=== PATIENT | male | born 1965 | race Caucasian/White ===

== ENCOUNTER 2020-07-13 11:04 | Emergency (ER) | payer OTHER, SELFPAY ==
--- NOTE | ~2020-07-13 | XR_ITS ---
EXAMINATION: XR RIBS, RIGHT CLINICAL INFORMATION: Status post fall COMPARISON: None TECHNIQUE: 3 views of the right ribs were obtained. FINDINGS: Multiple views of right ribs reveal no visible fracture or bony abnormality. The soft tissues are normal. There is no visible pneumothorax. XR/XR ribs RT 2V IMPRESSION: No visible rib fracture or bony abnormality.
[2020-07-13 11:23] VITALS: BP 125/73; PULSE 81; RESP 16; TEMP 36.8; O2SAT 99; BMI 26.9
--- NOTE | 2020-07-13 12:12 | ED.GENADULT ---
HPI - General Adult General Chief complaint: Fall Stated complaint: RIB INJURY Time Seen by Provider: 07/13/20 12:12 Source: patient and family Limitations: no limitations History of Present Illness HPI narrative: Patient's family states that he was in the basement on Friday when he tripped falling onto a cardboard box on the right side of his ribs. Pain has increased since pain is worse with deep inspiration or palpation. Pain 6/10. No nausea vomiting shortness of breath at this time. Patient denies tobacco history. Symptoms are [id number]. No prior history of rib injury. Related Data Previous Rx's Medication Instructions Recorded ibuprofen 600 mg PO Q8H PRN #30 tab 07/13/20 Allergies Allergy/AdvReac Type Severity Reaction Status Date / Time No Known Allergies Allergy Mild N/A Unverified 11/25/19 16:34 Review of Systems Review of Systems: Constitutional : No fever chills ise ENT/Mouth : Denies sore throat. Cardiovascular : No Chest Pain, No SOB, No Dyspnea on Exertion, No Orthopnea, No Edema, No Palpitations Respiratory : No Cough, No Sputum, No Wheezing, No Smoke Exposure, No Dyspnea Gastrointestinal : No Nausea, No Vomiting, No Diarrhe Musculoskeletal : No joint pain, No Myalgias, No Joint SwellingSkin : No Skin Lesions, No rash Neuro : No Weakness, No Numbness, No Paresthesias, No Loss of Consciousness, No Dizziness, No Headache Psych : No Anxiety/Panic, No Depression, No SI/HI/AH/VH, No Social Issues, Heme/Lymph: No Bruising, No Bleeding,No Lymphadenopathy Endocrine : No Polyuria, No Polydipsia, No Temperature Intolerance [facility] Past Medical History Attestation statement: The following information was validated with the patient. [facility] Narrative: Denies past medical history Medical History No known health problems Social History Social History Advance Directives: No Advance Directives Information Provided: No Physical Exam Vital Signs: Vital Signs: Last Vital Signs Temp 98.2 F 07/13/20 11:23 Pulse 81 07/13/20 11:23 Resp 16 07/13/20 11:23 BP 125/73 07/13/20 11:23 Pulse Ox 99 07/13/20 11:23 Body Mass Index 26.9 vital signs have been reviewed as normal and appeared to be correct. Blood pressure normal. Heart rate normal. Respiration rate normal. Temperature normal. Oxygen saturation normal. Appearance: Alert. Oriented X3. No acute distress. Head: Normal external exam. Normocephalic. Atraumatic. No Frank signs noted. No raccoon eyes noted Eyes: PERRLA. EOMI. Neck: Soft full range of motion, no JVD CVS: Heart regular rate and rhythm no murmurs and rubs Respiratory: Breath sounds are clear to auscultation bilaterally. No accessory muscle use noted. Right lateral ribs positive tenderness no crepitus palpated Abdomen: Soft nontender no rebound or guarding positive bowel sounds Back: No CVA tenderness. Full range of motion noted. Skin: Skin warm and dry. Normal skin color. Normal skin turgor. No rashes/lesions/lacerations noted. Extremities: No lower extremity edema. Extremities exhibit normal range of motion. Extremities nontender. Neuro: Oriented X 3. No motor deficit. No sensory deficit. Reflexes normal. Course Course Course Narrative: Right rib x-ray is pending. Patient likely has a right rib into. Medical Decision Making Imaging Data rib: Radiologist's impression: [address] [id number] ReportSigned Patient: Dre BrisenoMR#: [id number]: [id number]:[id number]/Sex: 54 / MADM Date: 07/13/20Loc: HO.EDAttending Dr: Ordering Physician: Lucila Montoya DO Date of Service: 07/13/20 Procedure(s): XR ribs RT 2V Accession Number(s): [id number] cc: Lucila Montoya DO~ EXAMINATION: XR RIBS, RIGHT CLINICAL INFORMATION: Status post fall COMPARISON: None TECHNIQUE: 3 views of the right ribs were obtained. FINDINGS: Multiple views of right ribs reveal no visible fracture or bony abnormality. The soft tissues are normal. There is no visible pneumothorax. XR/XR ribs RT 2V IMPRESSION: No visible rib fracture or bony abnormality. Dictated By:ABHINAV MENDEZ MDSigned By:<Electronically signed by ABHINAV MENDEZ MD in OV>07/13/20 1218 DD/ 1144TD/TT: Cdl Bulk Driver: ULISES Discharge Plan Discharge Clinical Impression: Contusion of rib on right side Patient Disposition: Home, Self-Care Instructions: Rib Contusion (ED) Additional Instructions: Deep inspirations every hour times 10 to help prevent pneumonia when you have a rib injury Motrin as directed Prescriptions: New ibuprofen 600 mg tablet 600 mg PO Q8H PRN (Reason: pain) Qty: 30 RF: 0 Print Language: Citizen Of [place]
== END 2020-07-13 13:04 | disposition home or self-care (01) ==
PROVIDERS: Emergency Provider Emergency Medicine
DX: S20.211A Contusion of right front wall of thorax, initial encounter (principal); W01.0XXA Fall on same level from slipping, tripping and stumbling without subsequent striking against object, initial encounter; Y93.89 Activity, other specified; Y92.018 Other place in single-family (private) house as the place of occurrence of the external cause; Y99.9 Unspecified external cause status
CPT/HCPCS: 71100; 99283

== ENCOUNTER 2020-11-19 12:51 | Emergency (ER) | payer OTHER, SELFPAY ==
--- NOTE | ~2020-11-19 | XR_ITS ---
EXAMINATION: XR HAND, LEFT CLINICAL INFORMATION: Laceration with a saw COMPARISON: None TECHNIQUE: PA, lateral, and oblique views of the left hand. FINDINGS: There is a soft tissue laceration through the volar aspect of the distal second digit extending to the proximal segment mid phalanx second digit. No additional bony abnormality seen. XR/XR hand LT 2V IMPRESSION: There is a soft tissue laceration extending from the tip of the volar aspect of second digit extending to the base of mid phalanx second digit resulting in angled avulsion fracture. There is moderate soft tissue swelling. No radiopaque foreign body seen.
[2020-11-19 12:57] VITALS: BP 157/98; PULSE 92; RESP 16; TEMP 36.8; O2SAT 98; BMI 25.0
--- NOTE | 2020-11-19 13:17 | PC.NURSE ---
large lac left index finger from pad on tip of finger down towards last knuckle, open, bleeding, and ragged. pad of thumb also is lacerated but still connected. has good sensation tips of all fingers and some ability to bend at knuckles. has been seen by niesha Mckinney and LATOYA Contreras.
[2020-11-19] MEDS: oxyCODONE HCl Immed Release 5 MG TABLET PO (13:24)
[2020-11-19] MEDS: Morphine Sulfate 4 MG/ML CARTRIDGE IM (13:24)
[2020-11-19] MEDS: Ondansetron ODT 4 MG TAB.RAPDIS TRANSLINGU (13:24)
[2020-11-19] MEDS: Lidocaine HCl 1 % MPF 5 ML VIAL SUBCUT ×2 (13:24→15:45)
[2020-11-19 13:29] VITALS: BP 145/90; PULSE 82; RESP 18; O2SAT 97
--- NOTE | 2020-11-19 13:30 | PC.NURSE ---
pt states he didn't pass out after laceration but has felt dizzy since.
[2020-11-19 14:00] VITALS: BP 131/84; PULSE 73; RESP 18; O2SAT 98
--- NOTE | 2020-11-19 15:24 | ED_ITS ---
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 He he reports he has some numbness sensation to the index/thumb and ulnar aspect of the left hand. He denies any thoughts of foreign bodies. He denies any bony tenderness. He reports he is up-to-date on his tetanus. This is not a work related injury. He denies any other injuries complaints or concerns at this time. Onset (ago): minute(s) (Prior to arrival) Extremity Location: left: hand (Index and thumb) Place: home Patient tetanus UTD: Yes Context: accidental Associated symptoms: pain and loss of feeling/numbness Treatments prior to arrival: tourniquet Related Data Previous Rx's Medication Instructions Recorded ibuprofen 600 mg tablet 600 mg PO Q8H PRN #30 tab 07/13/20 acetaminophen 500 mg tablet 1,000 mg PO QID PRN #14 tab 11/19/20 (Tylenol Extra Strength) cephalexin 500 mg capsule 500 mg PO Q6H 14 Days #56 cap 11/19/20 ibuprofen 800 mg tablet 800 mg PO Q8H PRN #14 tab 11/19/20 oxycodone 5 mg tablet 5 mg PO Q6H PRN #20 tab 11/19/20 Allergies Allergy/AdvReac Type Severity Reaction Status Date / Time No Known Allergies Allergy Mild N/A Verified 11/19/20 12:57 Review of Systems Review of Systems: Constitutional : No Fever, No Chills, Cardiovascular : No Chest Pain, No SOB Respiratory : No Dyspnea Gastrointestinal : No abdominal pain Musculoskeletal : No Joint Swelling Skin : positive skin laceration, No Foreign bodies, No rash, No surrounding erythema Neuro : Positive numbness, No Weakness Psych : No SI/HI/thoughts of self injury Yes all other systems are reviewed and are negative [facility] Past Medical History Attestation statement: The following information was validated with the patient. Medical History No known health problems Social History Social History Alcohol intake: never Patient Tobacco Use Status: Former Tobacco user Smoked in Last 30 Days: No Use of substances other than those prescribed or required for medical reasons: No Advance Directives: No Physical Exam Vital Signs: Vital Signs: Last Vital Signs Temp 98.2 F 11/19/20 12:57 Pulse 73 11/19/20 14:00 Resp 18 11/19/20 14:00 BP 131/84 11/19/20 14:00 Pulse Ox 98 11/19/20 14:00 Body Mass Index 25.0 vital signs have been reviewed as normal and appeared to be correct. Blood pressure hypertensive 157/98. Heart rate normal. Respiration rate normal. Temperature normal. Oxygen saturation normal. Appearance: Alert. Oriented X3. No acute distress. Head: Normal external exam. Normocephalic. Atraumatic. Eyes: PERRLA. EOMI. Conjunctiva and sclera normal. Eyelids normal. ENT: Pharynx normal. Uvula midline. Moist mucous membranes. Neck: Normal inspection. Neck supple. FROM. No adenopathy. No meningeal signs. CVS: Normal heart rate and rhythm. Pulses normal throughout. Respiratory: No respiratory distress. Painless inspiration. Abdomen: Soft and nontender. Bowel sounds normal in all 4 quadrants. No distent ion noted. No organomegaly noted. No visible injury noted. Back: Full range of motion noted. No rashes/lesion/induration/fluctuance or signs of infection noted. Skin: Skin warm and dry. Normal skin color. Normal skin turgor. No rashes/lesions/lacerations noted. Extremities: To left hand index finger patient has dorsal aspect patient has an extensive 6 cm or longer intermediate laceration involving the entire index finger. Both Dr. Mckinney and Jigna examined the tendons and ligaments and on our exam there is no ligamentous or tendon injury noted. Patient does report numbness although he has tenderness to palpation throughout the entire finger no obvious numbness noted on our exam. No obvious deformities or foreign bodies noted. He has full range of motion of the left hand index finger. To the left thumb distal aspect at the pad patient is noted to have an extensive intermediate flap laceration with irregular borders and missing tissue. No ligamentous/tendon injury. Patient does have tenderness palpation to the entire finger. He has full range of motion of the left hand all fingers including the thumb and the index. No foreign bodies noted. No arterial or venous injury no tawana on our exam. No nail involvement. See pictures below. Otherwise all other Extremities exhibit normal range of motion and nontender. Neuro: Oriented X 3. No motor deficit. No sensory deficit. Reflexes normal. Normal steady gait. No focal neuro deficits noted. Vascular: + radial pulses. Normal cap refill. No cyanosis noted to upper extremity nails. 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 Reports he is up-to-date on tetanus. Reports associated numbness although both Dr. Mckinney and I examined the patient and he does not have any sensory deficits he does not have any obvious ligamentous or tendon injury. He does not have any bony tenderness. There are no foreign bodies noted. He has full range of motion with pain. He has 2 extensive lacerations. X-ray obtained and reveals soft tissue swelling otherwise no other acute processes such as fractures or foreign bodies. Patient is now status post laceration repair I placed 14 sutures to the left thumb although patient had multiple irregular jagged edges therefore he may need a skin graft. I placed Xeroform with a clean dressing. I also sutured left hand index finger which required 23 sutures. Patient tolerated procedure well. No complications there. Place Xeroform with a clean dressing as well. Started the patient on Keflex. Will DC home with antibiotics and symptomatic treatment and referral to Dr. Moncada's the hand surgeon I instructed him to call tomorrow to make a follow-up appointment within this week and if he cannot make a follow-up appointment within this week he needs to follow up within 3-5 days back to the emergency department for re- evaluation of his sutures and I would recommend his sutures to stay in place for at least 14 days. Patient and son and understand and agree with this plan. [facility] - Wound/Laceration Medical Records Attestation: I reviewed the patient's medical records. Imaging Data X-ray of left hand: Attestation: I personally reviewed and interpreted this imaging study as follows: Radiologist's impression: CLINICAL INFORMATION: Laceration with a saw? COMPARISON: None? TECHNIQUE: PA, lateral, and oblique views of the left hand. FINDINGS: There is a soft tissue laceration through the volar aspect of the distal second digit extending to the proximal segment mid phalanx second digit. No additional bony abnormality seen. XR/XR hand LT 2V IMPRESSION: There is a soft tissue laceration extending from the tip of the volar aspect of second digit extending to the base of mid phalanx second digit resulting in angled avulsion fracture. There is moderate soft tissue swelling. No radiopaque foreign body seen. Procedures Laceration Laceration 1: Site: hand (Index finger dorsal aspect) Side (If applicable): left Size (cm): 6 Description: linear and irregular Depth: involves muscle layer Local Anesthetic: lidocaine 1% Amount of anesthesia used (mL): 5 Pre-repair: wound explored, irrigated extensively, deep structures intact and wound margins revised Skin layer closed with: nylon Size (cm): 4-0 Number of sutures: 23 Technique: simple, interrupted Laceration 2: Site: hand (Thumb palmar aspect) Side (If applicable): left Size (cm): 6 Description: flap and irregular Depth: involves muscle layer Local Anesthetic: lidocaine 1% Amount of anesthesia used (mL): 5 Pre-repair: wound explored, irrigated extensively, deep structures intact and wound margins revised Skin layer closed with: nylon Size (cm): 4-0 Number of sutures: 14 Technique: simple, interrupted Critical Care Time Critical Care Time Critical Care Time: Yes Total Critical Care Time: 60 Attestation: I personally attest to this time spent taking care of the patient Discharge Plan Discharge Clinical Impression: Laceration Patient Disposition: Home, Self-Care Instructions: Finger Laceration (ED) Prescriptions: New ibuprofen 800 mg tablet 800 mg PO Q8H PRN (Reason: pain) Qty: 14 RF: 0 acetaminophen [Tylenol Extra Strength] 500 mg tablet 1,000 mg PO QID PRN (Reason: fever or pain) Qty: 14 RF: 0 cephalexin 500 mg capsule 500 mg PO Q6H 14 Days Qty: 56 RF: 0 oxycodone 5 mg tablet 5 mg PO Q6H PRN (Reason: pain) Qty: 20 RF: 0 No Action ibuprofen 600 mg tablet 600 mg PO Q8H PRN (Reason: pain) Qty: 30 RF: 0 Referrals: [facility] [Primary Care Provider] - 2 days Deja Walker MD [Physician] - 11/20/20 Interventions: ED Discharge Assessment Last Done: 11/19/20 15:52 Discharge Date/Time: 11/19/20 15:52 Print Language: Peruvian
[2020-11-19] MEDS: cephALEXin 500 MG CAPSULE PO (15:45)
== END 2020-11-19 15:52 | disposition home or self-care (01) ==
PROVIDERS: Emergency Provider Emergency Medicine
DX: S61.412A Laceration without foreign body of left hand, initial encounter (principal); M79.642 Pain in left hand; W29.3XXA Contact with powered garden and outdoor hand tools and machinery, initial encounter; Y93.9 Activity, unspecified; Y92.9 Unspecified place or not applicable; Y99.9 Unspecified external cause status; Z79.899 Other long term (current) drug therapy; Z87.891 Personal history of nicotine dependence
CPT/HCPCS: 12002; 12004; 12042; 73120; 96372; 99284; 99291; J2270

== ENCOUNTER → 2020-11-20 13:53 | Outpatient (BNVA) | payer OTHER, SELFPAY | PROVIDERS: Visit Provider Orthopaedic Surgery | DX: S56.111A Strain of flexor muscle, fascia and tendon of right index finger at forearm level, initial encounter (principal); S62.621B Displaced fracture of middle phalanx of left index finger, initial encounter for open fracture; S62.611B Displaced fracture of proximal phalanx of left index finger, initial encounter for open fracture | CPT/HCPCS: 99202 ==

== ENCOUNTER 2020-11-22 16:00 | Emergency (ER) | payer OTHER, SELFPAY ==
--- NOTE | ~2020-11-22 | XR_ITS ---
EXAMINATION: XR HAND, LEFT CLINICAL INFORMATION: Laceration. Fever. Concern for infection. COMPARISON: Left hand November 19, 2020 TECHNIQUE: PA, lateral, and oblique views of the left hand. FINDINGS: There is a bandage over the index finger which obscures soft tissue and bone detail. There is redemonstration of the avulsed fracture of the middle phalanges of the index finger involving the proximal shaft and metaphysis of the radial side of the bone. There is continued collections of gas in the adjacent soft tissues. Persistence of gas since the prior study of November 19, 2020 in the soft tissues raises question of a gas-forming organism in the soft tissues. There is no bone destruction or periosteal reaction to suggest osteomyelitis radiographically. MRI without and with contrast however would be more sensitive for further assessment. There is also soft tissue laceration of the volar pad of the thumb with an overlying bandage. This is similar to the prior exam as well. No bone abnormality of the thumb. XR/XR hand LT min 3V IMPRESSION: Redemonstration of the fracture of the middle phalanges of the index finger. Continued gas in the soft tissues of the index finger adjacent to the fracture. No radiographic evidence of osteomyelitis. MRI without and with contrast however would be more sensitive for assessment of osteomyelitis.
[2020-11-22 16:41] VITALS: BP 142/82; PULSE 98; RESP 18; TEMP 37.1; O2SAT 98; BMI 27.3
[2020-11-22 18:17] VITALS: BP 140/84; PULSE 107; RESP 16; TEMP 36.8; O2SAT 97
--- NOTE | 2020-11-22 18:25 | ED.GENADULT ---
HPI - General Adult General Chief complaint: General Medical Stated complaint: Fever Time Seen by Provider: 11/22/20 16:21 Source: patient and family Mode of arrival: ambulatory Limitations: no limitations History of Present Illness HPI narrative: 55 y/o right hand dominant male with recent complex lacerations of his left index finger and thumb with open fracture of the left index finger who presents to the ER with 2 days of fevers at home. He was initially seen here on 11/19 on the date of his injury. He had multiple sutures placed to close his complex wounds, was discharged on 10 days of PO keflex. He followed up with Dr. Walker the next day. He has been compliant with his antibiotics. Yesterday he started having fevers as high as 101. He has pain in his hand that has been stable, improved with oxycodone. Denies discharge or redness of his fingers or hand. MD complaint: fever Onset (ago): day(s) (2) Location: left and upper extremity Radiation: non-radiation Severity: moderate Severity scale (1-10): 7 Quality: aching Pain Consistency: intermittent Relieving factors: cold therapy, immobilization and medication Exacerbating factors: movement Associated symptoms: fever/chills Treatments prior to arrival: none Related Data Previous Rx's Medication Instructions Recorded ibuprofen 600 mg tablet 600 mg PO Q8H PRN #30 tab 07/13/20 acetaminophen 500 mg tablet 1,000 mg PO QID PRN #14 tab 11/19/20 (Tylenol Extra Strength) cephalexin 500 mg capsule 500 mg PO Q6H 14 Days #56 cap 11/19/20 ibuprofen 800 mg tablet 800 mg PO Q8H PRN #14 tab 11/19/20 oxycodone 5 mg tablet 5 mg PO Q6H PRN #20 tab 11/19/20 ibuprofen 600 mg tablet 600 mg PO Q8H PRN #14 tab 11/22/20 oxycodone-acetaminophen 5 mg-325 1 tab PO Q6H PRN #7 tab 11/22/20 mg tablet (Percocet) Allergies Allergy/AdvReac Type Severity Reaction Status Date / Time No Known Allergies Allergy Mild N/A Verified 11/22/20 16:40 Review of Systems Review of Systems: Constitutional: + Fever, No Chills ENT/Mouth: No sore throat, No Rhinorrhea Cardiovascular: No Chest Pain, No SOB Respiratory: No Cough, No Sputum, No Wheezing, No dyspnea Gastrointestinal: No Nausea, No Vomiting, No Diarrhea, No abdominal Pain Genitourinary: No Dysuria Musculoskeletal: + joint pain, No Myalgias Skin: No Skin Lesions, No rash Neuro: No Weakness, No Numbness, No Dizziness, No Headache Heme/Lymph: No Bruising, No Lymphadenopathy PMFSH Past Medical History Attestation statement: The following information was validated with the patient. 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 Oriented X3. No acute distress. HEENT: normal inspection CVS: Normal heart rate and rhythm. Pulses normal. Respiratory: No respiratory distress. Skin: Skin warm and dry. Normal skin color. Normal skin turgor. No rashes. Extremities: left hand with mild swelling of the dorsal side, no erythema, mild warmth. multiple sutures in place along complex lacerations of the left index and thumb with mild swelling, no drainage, no erythema or warmth. limited ROM due to pain. NV intact distally. Neuro: Oriented X 3. No motor deficit. No sensory deficit. Course Course Course Narrative: 55 y/o male presenting for evaluation of fever in the setting of complex finger lacerations on 11/19. He is on PO abx and has been compliant. His exam does not reveal any concern for abscess, possible tenosynovitis but no red streaking up his arm. No fever here. He appears well. Will get labs, cultures, lactic acid and send photos to Dr. Walker who saw him 2 days ago. Reevaluation(s) Reevaluation #1: Dr. Walker feels the wounds like similar to how they looked 2 days ago. His lab workup is unremarkable. His COVID test is positive. He was counseled on diagnosis and management. He is stable for discharge home with supportive care and follow up with Dr. Walker once his quarantine is over. Patient agrees with plan and wound care at home was discussed. Medical Decision Making Lab Data Result diagrams: 11/22/20 18:47 11/22/20 18:47 Labs: Lab Results 11/22/20 11/22/20 11/22/20 Range/Units 18:47 18:47 18:47 WBC 6.8 (4.8-10.8) X10*3/uL RBC 5.35 (4.60-5.80) X10*6/uL Hgb 15.1 (14.0-18.0) g/dl Hct 45.2 (42-52) % MCV 84.5 (80-98) fL MCH 28.2 (27.0-33.0) pg MCHC 33.4 (31.0-36.0) g/dl RDW 13.2 (11.0-16.0) % Plt Count 218 (160-400) X10*3/uL MPV 10.0 (9.4-12.4) fL Immature Gran % (Auto) 0.3 (0.0-0.4) % Neut % (Auto) 66.7 (45-73) % Lymph % (Auto) 19.1 L (20-40) % [place] % (Auto) 13.5 H (2-11) % Eos % (Auto) 0.1 (0-4) % Baso % (Auto) 0.3 (0-2) % Lymph # (Auto) 1.3 (1.2-4.9) X10*3/uL [place] # (Auto) 0.9 (0.1-1.2) X10*3/uL Eos # (Auto) 0.0 (0.0-0.4) X10*3/uL Baso # (Auto) 0.0 (0.0-0.2) X10*3/uL Abs Immat Gran (auto) 0.02 (0.00-0.03) X10*3/uL Absolute Neuts (auto) 4.5 (2.0-8.3) X10*3/uL Absolute Nucleated RBC 0.000 (0.0-0.012) X10*3/uL Nucleated RBC % (auto) 0.0 (0.0-0.2) /100WBC Sodium 135 (135-145) mmol/L Potassium 4.5 (3.3-5.1) mmol/L Chloride 99 (96-108) mmol/L Carbon Dioxide 28 (22-29) mmol/L Anion Gap 13 (12-20) BUN 11 (9-16) mg/dL Creatinine 1.12 (0.5-1.4) mg/dL Estim Creat Clear Calc 65.4 Estimated GFR > 60 Random Glucose 101 (60-115) mg/dL Lactic Acid 0.6 (0.5-2.0) mmol/L Calcium 9.7 (8.4-10.2) mg/dL COVID-19 (ISAK) (Negative) COVID-19 Clin Com 11/22/20 Range/Units 18:47 WBC (4.8-10.8) X10*3/uL RBC (4.60-5.80) X10*6/uL Hgb (14.0-18.0) g/dl Hct (42-52) % MCV (80-98) fL MCH (27.0-33.0) pg MCHC (31.0-36.0) g/dl RDW (11.0-16.0) % Plt Count (160-400) X10*3/uL MPV (9.4-12.4) fL Immature Gran % (Auto) (0.0-0.4) % Neut % (Auto) (45-73) % Lymph % (Auto) (20-40) % [place] % (Auto) (2-11) % Eos % (Auto) (0-4) % Baso % (Auto) (0-2) % Lymph # (Auto) (1.2-4.9) X10*3/uL [place] # (Auto) (0.1-1.2) X10*3/uL Eos # (Auto) (0.0-0.4) X10*3/uL Baso # (Auto) (0.0-0.2) X10*3/uL Abs Immat Gran (auto) (0.00-0.03) X10*3/uL Absolute Neuts (auto) (2.0-8.3) X10*3/uL Absolute Nucleated RBC (0.0-0.012) X10*3/uL Nucleated RBC % (auto) (0.0-0.2) /100WBC Sodium (135-145) mmol/L Potassium (3.3-5.1) mmol/L Chloride (96-108) mmol/L Carbon Dioxide (22-29) mmol/L Anion Gap (12-20) BUN (9-16) mg/dL Creatinine (0.5-1.4) mg/dL Estim Creat Clear Calc Estimated GFR Random Glucose (60-115) mg/dL Lactic Acid (0.5-2.0) mmol/L Calcium (8.4-10.2) mg/dL COVID-19 (ISAK) Positive A (Negative) COVID-19 Clin Com See Note Critical Care Time Critical Care Time Critical Care Time: No Discharge Plan Discharge Clinical Impression: COVID-19 Patient Disposition: Home, Self-Care Instructions: COVID-19 (Coronavirus Disease 2019) (ED) Additional Instructions: You were found to be COVID-19 POSITIVE today. Your oxygen levels were normal. Rest. Drink plenty of fluids. Do not go out in public for the next 10-14 days. Take over the counter cold/flu medications as needed for your symptoms. Take Tylenol and/or Motrin as needed for fevers and body aches. Follow up with your doctor this week. If you develop shortness of breath, develop difficulty breathing or any other concerning symptom come back to the ER for further evaluation. Continue taking your previously prescribed antibiotics. Follow up with Dr. Walker once your quarantine is over. Prescriptions: New oxycodone-acetaminophen [Percocet] 5-325 mg tablet 1 tab PO Q6H PRN (Reason: pain) Qty: 7 RF: 0 ibuprofen 600 mg tablet 600 mg PO Q8H PRN (Reason: pain) Qty: 14 RF: 0 No Action ibuprofen 600 mg tablet 600 mg PO Q8H PRN (Reason: pain) Qty: 30 RF: 0 ibuprofen 800 mg tablet 800 mg PO Q8H PRN (Reason: pain) Qty: 14 RF: 0 acetaminophen [Tylenol Extra Strength] 500 mg tablet 1,000 mg PO QID PRN (Reason: fever or pain) Qty: 14 RF: 0 cephalexin 500 mg capsule 500 mg PO Q6H 14 Days Qty: 56 RF: 0 oxycodone 5 mg tablet 5 mg PO Q6H PRN (Reason: pain) Qty: 20 RF: 0 Referrals: Deja Walker MD [Physician] - 10 days Stand Alone Forms: Work/School Release Interventions: ED Discharge Assessment Last Done: 11/22/20 19:36 Discharge Date/Time: 11/22/20 19:36 Print Language: Slovenian
[2020-11-22 18:49] LABS: MANUAL DIFF FLAG NO
[2020-11-22 18:54] LABS: Basophils Percent Auto 0.3 % (0-2); Eosinophils Percent Auto 0.1 % (0-4); Hematocrit 45.2 % (42-52); Hemoglobin 15.1 g/dl (14.0-18.0); Imm Gran Abs Auto 0.02 X10*3/uL (0.00-0.03); Imm Gran Pct Auto 0.3 % (0.0-0.4); Lymphocytes Absolute Auto 1.3 X10*3/uL (1.2-4.9); Lymphocytes Percent Auto 19.1 % (20-40); Mean Corpuscular HGB Conc 33.4 g/dl (31.0-36.0); Mean Corpuscular Hemoglobin 28.2 pg (27.0-33.0); Mean Corpuscular Volume 84.5 fL (80-98); Monocytes Absolute Auto 0.9 X10*3/uL (0.1-1.2); Monocytes Percent Auto 13.5 % (2-11); Neutrophils Absolute Auto 4.5 X10*3/uL (2.0-8.3); Neutrophils Percent Auto 66.7 % (45-73); Platelet Count 218 X10*3/uL (160-400); Red Blood Count 5.35 X10*6/uL (4.60-5.80); Red Cell Distribution Width 13.2 % (11.0-16.0); White Blood Count 6.8 X10*3/uL (4.8-10.8)
[2020-11-22 19:07] LABS: IDNOW Serial# 08D9AD1C
[2020-11-22 19:08] LABS: COVID-19 Test Positive (Negative); Lactic Acid 0.6 mmol/L (0.5-2.0)
[2020-11-22 19:11] LABS: Anion Gap 13 (12-20); Blood Urea Nitrogen 11 mg/dL (9-16); Calcium 9.7 mg/dL (8.4-10.2); Carbon Dioxide 28 mmol/L (22-29); Chloride 99 mmol/L (96-108); Creatinine Clr Calc Pharmacy 65.4; Estimated Glomerular Filt Rate > 60; Glucose Random 101 mg/dL (60-115); Potassium 4.5 mmol/L (3.3-5.1); Sodium 135 mmol/L (135-145)
[2020-11-22] MEDS: HYDROcodone Bit/Acetam 5/325 TABLET 1 TAB PO (19:18)
== END 2020-11-22 19:36 | disposition home or self-care (01) ==
PROVIDERS: Physician Assistant; Emergency Provider Emergency Medicine Emergency Medical Services
DX: U07.1 COVID-19 (principal); R50.9 Fever, unspecified; Z87.891 Personal history of nicotine dependence; Z79.899 Other long term (current) drug therapy
CPT/HCPCS: 36415; 73130; 80048; 83605; 85025; 87040; 87635; 99283

== ENCOUNTER 2020-12-04 07:54 | Emergency (ER) | payer OTHER, SELFPAY ==
--- NOTE | 2020-12-04 07:59 | ED_ITS ---
HPI - Skin/Abscess/Foreign Bdy General Chief complaint: Extremity Problem Stated complaint: wound check Time Seen by Provider: 12/04/20 07:59 Source: patient Mode of arrival: ambulatory Limitations: no limitations History of Present Illness HPI narrative: This is a 55-year-old gjopm-ghip-zswaoaao male who presents to the emergency department for a wound check. He had 14 sutures placed to his left thumb, and 23 sutures placed to his left index finger. He states he was supposed to follow-up with Dr. Walker, however he tested positive for COVID on 11/22/2020 so they were unable to see him in the office. He is here today to see if his sutures can come out, or if Dr. Moncada should examine his hand. He denies fevers, chills, SOB, CP. MD complaint: laceration Tetanus up to date: yes Location: L hand Related Data Previous Rx's Medication Instructions Recorded ibuprofen 600 mg tablet 600 mg PO Q8H PRN #30 tab 07/13/20 acetaminophen 500 mg tablet 1,000 mg PO QID PRN #14 tab 11/19/20 (Tylenol Extra Strength) ibuprofen 800 mg tablet 800 mg PO Q8H PRN #14 tab 11/19/20 oxycodone 5 mg tablet 5 mg PO Q6H PRN #20 tab 11/19/20 ibuprofen 600 mg tablet 600 mg PO Q8H PRN #14 tab 11/22/20 oxycodone-acetaminophen 5 mg-325 1 tab PO Q6H PRN #7 tab 11/22/20 mg tablet (Percocet) cephalexin 500 mg capsule 500 mg PO QID 7 Days #28 cap 12/04/20 Allergies Allergy/AdvReac Type Severity Reaction Status Date / Time No Known Allergies Allergy Mild N/A Verified 11/22/20 16:40 Review of Systems Review of Systems: Appearance: Alert. Oriented X3. No acute distress. ENT: Pharynx normal. Neck: Normal inspection. Neck supple. CVS: Normal heart rate and rhythm. Pulses normal. Respiratory: No respiratory distress. Breath sounds normal. Abdomen: Soft and nontender. Skin: Skin warm and dry. Normal skin color. Normal skin turgor. Extremities: No lower extremity edema. + Sutures to left thumb and index finger Neuro: Oriented X 3. No motor deficit. No sensory deficit. 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 Oriented X3. No acute distress. ENT: Pharynx normal. Neck: Normal inspection. Neck supple. CVS: Normal heart rate and rhythm. Pulses normal. Respiratory: No respiratory distress. Breath sounds normal. Abdomen: Soft and nontender. Skin: Skin warm and dry. Normal skin color. Normal skin turgor. Extremities: No lower extremity edema. + sutures to left thumb and index finger, C/D/I. Thickening of skin surrounding sutures along with darkening of the skin ? viability of the skin overlying the thumb. Neuro: Oriented X 3. No motor deficit. No sensory deficit. Course Course Course Narrative: TT has been sent to Dr. Walker. Will not remove stitches until instructed to do so Reevaluation(s) Reevaluation #1: Dr. Moncada recommended removing all the stitches, and unroofing the wound to ensure that there is no infection. She also requested the patient be swabbed for COVID, and she would like him to follow-up sometime this week. All stitches were removed, 14 to the thumb, 23 to the left index finger. Edges of the wound were lifted, and there is no purulence. However, there is exquisite tenderness, especially when removing stitches to the left thumb. Concerning for infection. Plan is to discharge the patient home, with prompt follow-up with Dr. Walker office. He will also be started on antibiotics Keflex 500mg QID X7 days. Dr. Walker will try and get this patient in the office for follow up this week despite his + COVID test MDM - Skin/Abscess/Foreign Bdy MDM Narrative Medical decision making narrative: 55-year-old hicbv-ymyd-lnjiuwgy male presents to the emergency department for a wound check. He had a complex laceration on 11/19/2020 that was closed with 14 sutures to the left thumb, and 23 sutures to his left index finger. He states he was unable to follow-up with the hand surgeon, because he tested positive for COVID on 11/22/2020. He was told to come into the emergency department for follow-up, he also states that Dr. Moncada wanted us to contact her prior to removal of the stitches, to see whether not she needed to see him. Lab Data Labs: Lab Results 12/04/20 Range/Units 08:56 COVID-19 (ISAK) Positive A (Negative) COVID-19 Clin Com See Note Discharge Plan Discharge Clinical Impression: Laceration of thumb, left, complicated, Laceration of left index finger, Encounter for removal of sutures Patient Disposition: Home, Self-Care Instructions: Laceration (ED), Finger Laceration (ED) Additional Instructions: Please follow-up with Dr. Walker. Antibiotics have been sent to your pharmacy, it is important that you take them to their entirety, do not skip any doses Return to the emergency department with new or worsening symptoms Lisa un seguimiento con el Dr. Walker. Se bustos enviado antibi?ticos a tu farmacia, es importante que los lleves en nicole totalidad, no te saltes ninguna dosis Regrese al departamento de emergencias con s?ntomas nuevos o que empeoran Prescriptions: New cephalexin 500 mg capsule 500 mg PO QID 7 Days Qty: 28 RF: 0 Discontinued cephalexin 500 mg capsule 500 mg PO Q6H 14 Days Qty: 56 RF: 0 No Action oxycodone-acetaminophen [Percocet] 5-325 mg tablet 1 tab PO Q6H PRN (Reason: pain) Qty: 7 RF: 0 ibuprofen 600 mg tablet 600 mg PO Q8H PRN (Reason: pain) Qty: 14 RF: 0 ibuprofen 600 mg tablet 600 mg PO Q8H PRN (Reason: pain) Qty: 30 RF: 0 ibuprofen 800 mg tablet 800 mg PO Q8H PRN (Reason: pain) Qty: 14 RF: 0 acetaminophen [Tylenol Extra Strength] 500 mg tablet 1,000 mg PO QID PRN (Reason: fever or pain) Qty: 14 RF: 0 oxycodone 5 mg tablet 5 mg PO Q6H PRN (Reason: pain) Qty: 20 RF: 0 Referrals: Vernell Odonnell MD [Primary Care Provider] - 2 days Deaj Walker MD [Physician] - 2 days Stand Alone Forms: Work/School Release Print Language: Singaporean
[2020-12-04 08:06] VITALS: BP 140/75; PULSE 90; RESP 18; TEMP 36.6; O2SAT 98; BMI 25.7
[2020-12-04 08:12] VITALS: BP 140/72; PULSE 90; O2SAT 98
--- NOTE | 2020-12-04 08:58 | PC.NURSE ---
provider and pa at bedside to remove sutures, covid swab sent
[2020-12-04 09:18] LABS: COVID-19 Test Positive (Negative)
== END 2020-12-04 10:18 | disposition home or self-care (01) ==
PROVIDERS: Emergency Provider Emergency Medicine; PCP Internal Medicine
DX: U07.1 COVID-19 (principal); Z48.02 Encounter for removal of sutures; Z87.891 Personal history of nicotine dependence; Z79.899 Other long term (current) drug therapy
CPT/HCPCS: 36415; 87635; 99283; 99284

== ENCOUNTER → 2020-12-12 11:55 | Outpatient (BNVA) | payer OTHER, SELFPAY | PROVIDERS: PCP Internal Medicine; Visit Provider Orthopaedic Surgery | DX: S62.621D Displaced fracture of middle phalanx of left index finger, subsequent encounter for fracture with routine healing (principal); S62.611D Displaced fracture of proximal phalanx of left index finger, subsequent encounter for fracture with routine healing; S61.012D Laceration without foreign body of left thumb without damage to nail, subsequent encounter; S61.211D Laceration without foreign body of left index finger without damage to nail, subsequent encounter | CPT/HCPCS: 99212 ==

== ENCOUNTER 2020-12-26 07:59 | Outpatient (REF) | payer OTHER, SELFPAY ==
--- NOTE | ~2020-12-26 | XR_ITS ---
EXAMINATION: XR HAND, LEFT CLINICAL INFORMATION: Fracture COMPARISON: Previous x-ray November 2020 TECHNIQUE: PA, lateral, and oblique views of the left hand. FINDINGS: There is evidence of trauma to the radial and volar side of the middle phalanx of the second finger near the PIP joint that appears unchanged. No other fracture is seen. There is mild adjacent soft tissue swelling.. XR/XR hand LT min 3V IMPRESSION: Trauma to the middle phalanx of the second finger similar to November 2020 exam.
== END 2020-12-26 08:00 | disposition home or self-care (01) ==
LOC: HO.HOSX 07:59
PROVIDERS: Visit Provider Physician Assistant
DX: S62.611B Displaced fracture of proximal phalanx of left index finger, initial encounter for open fracture (principal); S62.621B Displaced fracture of middle phalanx of left index finger, initial encounter for open fracture
CPT/HCPCS: 73130; 99212

== ENCOUNTER → 2021-01-10 10:00 | Outpatient (BNVA) | payer OTHER, SELFPAY | PROVIDERS: PCP Internal Medicine; Visit Provider Orthopaedic Surgery | DX: S61.211D Laceration without foreign body of left index finger without damage to nail, subsequent encounter (principal); S61.012D Laceration without foreign body of left thumb without damage to nail, subsequent encounter; S62.611D Displaced fracture of proximal phalanx of left index finger, subsequent encounter for fracture with routine healing; S62.621D Displaced fracture of middle phalanx of left index finger, subsequent encounter for fracture with routine healing | CPT/HCPCS: 99212 ==

== ENCOUNTER 2021-02-07 08:20 | Outpatient (REF) | payer OTHER, SELFPAY ==
--- NOTE | ~2021-02-07 | XR_ITS ---
EXAMINATION: XR HAND, LEFT CLINICAL INFORMATION: Trauma COMPARISON: Previous x-rays most recent December 2019 TECHNIQUE: PA, lateral, and oblique views of the left hand. FINDINGS: There is a healed fracture of the radial and volar middle phalanx of the second finger near the PIP joint. No other fracture is seen. Joint spaces are normal. Soft tissues are normal. XR/XR hand LT min 3V IMPRESSION: Healed fracture of the radial and volar middle phalanx of the second finger.
== END 2021-02-07 08:21 | disposition home or self-care (01) ==
LOC: HO.HOSX 08:20
PROVIDERS: Visit Provider Orthopaedic Surgery
DX: S62.621B Displaced fracture of middle phalanx of left index finger, initial encounter for open fracture (principal); S62.611B Displaced fracture of proximal phalanx of left index finger, initial encounter for open fracture
CPT/HCPCS: 73130; 99212

== ENCOUNTER 2021-02-20 08:30 | Outpatient (RCR) | payer OTHER, SELFPAY ==
--- NOTE | 2020-12-28 11:23 | MHC.OT.OEV ---
[address] [phone] F: [phone] Occupational Therapy Evaluation Diagnosis: Left index and thumb lacaeration w/ index mid phalanx and prox phalanx fractures Date of Onset: 11/19/20 Attending Provider: Dr Walker Prescribed Treatment: Eval and Treat MD Follow Up Appointment: 01/10/21 History of Current Condition: 55 yo male was using a table saw at home, saw caught and hand was laceration. Went to the ED and was found to have volar thumb and dorsal index lacerations w/ index mid and prox phalanx fractures. Tendons intact, wound debrided and sutured. He followed up w/ Dr Walker the next day for further assessment. On return to ED he tested Covid (+), now about 5 weeks s/p inury and referred to OT. 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 Can carry light objects w/ D3-D5 or carry bags on wrist/elbow Sleep: No issues Driving: Able to drive now Pain Assessment Pain Score: 2 Pain Scale Used: Numeric (0 - 10) Pain Location and Description: Pain free at rest, increases w/ attempted movement of index Aggravating Factors: Index movements Alleviating Factors: Tylenol or Motrin PRN Skin and Soft Tissue Assessment Skin and Soft Tissue: Swelling Wound Scar Tissue Comments: Dorsal index well healing laceration, sutures have been removed, pink skin w/ surrounding dry tissue Volar thumb tip drying wound, small open area pinhead size, clean w/ s/s of infection Sensory Assessment Comments: Light touch intact over volar tip and index dorsum Edema Assessment Upper Extremity: Left Impaired Lower Extremity: Comments: Mild edema in left hand, more in index and thumb Dexterity Assessment Dexterity: Left Impaired AROM(PROM) Strength Shoulder Flexion: Extension: Abduction: Internal Rotation: External Rotation: Comments: WFL Flexion: Extension: Abduction: Internal Rotation: External Rotation: Comments: Elbow Flexion: Extension: Pronation: Supination: Comments: WFL Flexion: Extension: Pronation: Supination: Comments: Wrist Flexion: Extension: Ulnar Deviation: Radial Deviation: Comments: WFL Flexion: Extension: Ulnar Deviation: Radial Deviation: Comments: Thumb Thumb CMC Flexion: Thumb MCP Flexion: R 42 L 40 Thumb IP Flexion: L 60 L 35 Radial Abduction: Palmar Abduction: Eaton (Kapandji 0-10): Comments: Digits Index MCP: R 76 L 54 PIP: R 94 L 20 DIP: R 54 L 12 Long MCP: PIP: DIP: Ring MCP: PIP: DIP: Small MCP: PIP: DIP: Comments: Gross Grasp: R 85 L NT Lateral Pinch: Two-Point Pinch: Three-Jaw Matt: Comments: Patient Education 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 Patient demonstrates Patient verbalizes Family/SO demonstrates Family/SO verbalizes Barriers to Learning: None Readiness for Learning: Accepting Who was educated? 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 He was splinted in ED for index healing, later found to be Covid 19 (+) and now referred to OT for further management of wounds and fractures. On assessment, wounds are healing well, areas of dry, scabbed skin, one very small open area on volar thumb tip, no s/s of infection. Index is very stiff w/ minimal active and passive range of IPs. We will continue to progress range and strength as appropriate w/ fracture healing while addressing wound issues. STG Duration: 2 weeks Short Term Goals: Ind w/ soft tissue and scar massage Ind w/ HEP Pt to demo active PIP to 40 degrees Pt to demo active DIP to 40 degrees Pt to demo use of thumb-index tip pinch for light functional use (buttons, etc) LTG Duration: 6 weeks [facility] Goals: Pt to demo active tip-palm flexion of index Pt to demo thumb to small finger flexion Left gross grasp >50lb Pt to report Ind w/ showers and dressing, including all fasteners Frequency and Duration: The patient will be seen 2x/wk for 6 weeks Treatment Plan: Therapeutic Exercise Therapeutic Activity Home Exercise Program Splinting Patient Education Desensitization/Sensory Re-ed Edema Control ADL Training Paraffin Fluidotherapy MHP Cold Packs Joint Mobilization Soft Tissue Mobilization Kinesiotaping Other (see comments) Wound care Electronically Signed By: Lola Sevilla OTR/L Reviewed/agree with student documentation: N/A Therapist: Please sign and return to therapist, Thank you for your referral.
--- NOTE | 2021-01-08 12:54 | MHC.OT.OP ---
[address] [phone] F: [phone] Occupational Therapy Progress Note Diagnosis: Left index and thumb lacaeration w/ index mid phalanx and prox phalanx fractures Date of Evaluation: 12/28/20 Treatments to Date: 4 Subjective: It's tight Pain Score: 5 Pain Location: left index, with movement Objective Measures: Light touch intact over volar tip and index dorsum Status: Progressing Assessment: 7 wks s/p injury w/ index and thumb laceration. He continues to have significant tightness at index PIP and DIP, difficulty w/ self stretch due to pain, will benefit from splinting to promote flexion stretch. Dorsal index wound well healed, dry edges, no s/s of infection. Thumb pad healing, closed with small areas of dark tissue under healing flap, does not appear netrotic. No s/s of infection. Short Term Goals: Ind w/ soft tissue and scar massage Ind w/ HEP Pt to demo active PIP to 40 degrees Pt to demo active DIP to 40 degrees Pt to demo use of thumb-index tip pinch for light functional use (buttons, etc) Scrap Shear Operator Goals: Pt to demo active tip-palm flexion of index Pt to demo thumb to small finger flexion Left gross grasp >50lb Pt to report Ind w/ showers and dressing, including all fasteners Frequency and Duration: The patient will be seen 3x/wk for 6 weeks Treatment Plan: Therapeutic Exercise Therapeutic Activity Home Exercise Program Splinting Patient Education Desensitization/Sensory Re-ed Edema Control ADL Training Paraffin Fluidotherapy MHP Cold Packs Joint Mobilization Soft Tissue Mobilization Wound care Electronically Signed By: CHRISTA Zarco/Hira Reviewed/agree with student documentation: N/A Therapist:
--- NOTE | 2021-02-26 13:53 | MHC.OT.DC ---
[address] [phone] F: [phone] Occupational Therapy Discharge Note Provider: Dr Walker Diagnosis: Left index and thumb lacaeration w/ index mid phalanx and prox phalanx fractures Date of Evaluation: 12/28/20 Date of Discharge: 02/26/21 Treatments to Date: 13 Discharge Status: Independent with HEP Patient Elected to Stop Discharge Summary: Dre has been attending OT for management of left index and thumb range, strength and wound care s/p laceration w/ table saw. He is well healed and has good thumb range and strength, however index continues to have significant tightness and limited range, despite aggressive therapy and HEP. He has followed up w/ Dr Walker and will be scheduled for surgery next month w/ goal of releasing extensor mechanism. He has decided to hold OT until after surgery, please re-order as appropriate once post-op, thank you. Electronically Signed By: Lola Sevilla OTR/Hira CHT Reviewed/agree with student documentation: N/A Therapist: Please Sign and return to therapist, thank you for your referral.
== END 2021-02-26 14:00 | disposition home or self-care (01) ==
LOC: HO.OT 08:30
PROVIDERS: Visit Provider Orthopaedic Surgery
DX: S62.611B Displaced fracture of proximal phalanx of left index finger, initial encounter for open fracture (principal); S62.621B Displaced fracture of middle phalanx of left index finger, initial encounter for open fracture
CPT/HCPCS: 29131; 97035; 97110; 97140; 97165; 97760

== ENCOUNTER 2021-04-11 08:20 | Outpatient (REF) | payer OTHER, SELFPAY ==
--- NOTE | ~2021-04-11 | XR_ITS ---
EXAMINATION: XR HAND, LEFT CLINICAL INFORMATION: Pain COMPARISON: Prior x-rays latest 02/07/2021 TECHNIQUE: Four views of the left hand. FINDINGS: Redemonstrated is dysmorphic appearance related to healed fracture of the radial/volar aspect of the proximal second middle phalanx base. No acute fracture is otherwise seen. Joint spaces are maintained. No abnormal soft tissue calcification. XR/XR hand LT min 3V IMPRESSION: Similar appearance of prior fracture of the second middle phalanx proximal base. No acute osseous abnormality seen.
== END 2021-04-11 08:21 | disposition home or self-care (01) ==
LOC: HO.HOSX 08:20
PROVIDERS: Visit Provider Orthopaedic Surgery
DX: S62.621A Displaced fracture of middle phalanx of left index finger, initial encounter for closed fracture (principal); S62.611A Displaced fracture of proximal phalanx of left index finger, initial encounter for closed fracture; S61.012A Laceration without foreign body of left thumb without damage to nail, initial encounter; S61.221A Laceration with foreign body of left index finger without damage to nail, initial encounter; M25.642 Stiffness of left hand, not elsewhere classified; Z87.891 Personal history of nicotine dependence; X58.XXXA Exposure to other specified factors, initial encounter; Y93.9 Activity, unspecified; Y92.9 Unspecified place or not applicable; Y99.9 Unspecified external cause status
CPT/HCPCS: 73130; 99212

== ENCOUNTER 2021-04-16 05:57 | Day surgery (SDC) | payer OTHER, SELFPAY ==
[2021-04-09 14:06] VITALS: BMI 25.7
--- NOTE | 2021-04-13 08:19 | HO.ANESPROP2 ---
Documented by User: Marcella Astorga NP 04/13/21 08:20 HPI - Anesthesia Eval Consult details Narrative: 55yo M for Left Index finger Extensor Tendon Repair, tenolysis with capsulectomy and release of scar tissue PMFSH Active Problems Active Problems: All Active Problems (Updated 04/09/21 @ 14:05 by Bailey Camacho RN) Open fracture of middle phalanx of left index finger (Acute) Open fracture of proximal phalanx of left index finger (Acute) Laceration of thumb, left, complicated (Acute) Laceration of left index finger (Acute) COVID-19 (Acute) Stiffness of finger joint of left hand (Acute) Past Medical History Medical History Elevated cholesterol Hx of gastroesophageal reflux (GERD) Surgical History Surgical History History of back surgery History of esophagogastroduodenoscopy (EGD) Hx of colonoscopy Social History Social History Alcohol intake: never Patient Tobacco Use Status: Never used Tobacco Use of substances other than those prescribed or required for medical reasons: No Are you DNR?: No Advance Directives: No Advance Directives Information Provided: Yes Current occupational status: retired and disabled 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 Meds Allergies Allergy/AdvReac Type Severity Reaction Status Date / Time No Known Allergies Allergy Mild N/A Verified 04/16/21 06:44 Home Medications Medication Instructions Recorded Confirmed Last Taken Type atorvastatin 40 mg tablet 1 tab PO BEDTIME 04/09/21 04/09/21 Unknown History cholecalciferol (vitamin D3) 25 1 cap PO DAILY 04/09/21 04/09/21 Unknown History mcg (1,000 unit) capsule Exam Exam Date and Time: April 13, 2021 0819 Height,Weight and Vital Signs: Height 5 ft 4 in Weight 68.039 kg Pertinent Lab Results Pertinent Lab Results: Laboratory Tests 11/22/20 11/22/20 18:47 18:47 WBC 6.8 Hgb 15.1 Hct 45.2 Plt Count 218 Sodium 135 Potassium 4.5 Chloride 99 Carbon Dioxide 28 BUN 11 Creatinine 1.12 Assessment and Plan Assessment Anesthesia Assessment: Chart Reviewed Documented by User: Nile Polanco MD 04/16/21 07:10 [facility] Past Medical History Medical History Elevated cholesterol Hx of gastroesophageal reflux (GERD) Family History Family history of problems with anesthesia: No Surgical History Surgical History History of back surgery History of esophagogastroduodenoscopy (EGD) Hx of colonoscopy History of Problems with Anesthesia: No Social History Social History Alcohol intake: never Patient Tobacco Use Status: Never used Tobacco Use of substances other than those prescribed or required for medical reasons: No Are you DNR?: No Advance Directives: No Advance Directives Information Provided: Yes Current occupational status: retired and disabled 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 Meds Allergies Allergy/AdvReac Type Severity Reaction Status Date / Time No Known Allergies Allergy Mild N/A Verified 04/16/21 06:44 Home Medications Medication Instructions Recorded Confirmed Last Taken Type atorvastatin 40 mg tablet 1 tab PO BEDTIME 04/09/21 04/09/21 Unknown History cholecalciferol (vitamin D3) 25 1 cap PO DAILY 04/09/21 04/09/21 Unknown History mcg (1,000 unit) capsule Exam Airway Mallampati Class: II TM Dist: >3cm Neck ROM: Full Loose/Missing/Broken Teeth: No Heart: rrr+[id number] Lungs: cta b/l Assessment and Plan Assessment Anesthesia Assessment: Anesthesia Plan Discussed Final Anesthetic Review Family History of Problems with Anesthesia: No History of Problems with Anesthesia: No NPO: Yes ASA Class: II Final Preanesthetic Review: No Changes in Pt Med Stat, Meds/Allgs Chart Reviewed, Consent Obtained/Reviewed and Anes Risks/Benef Reviewed Patient Risk: Intermediate Procedure Risk: Low Assessment/Block/Sedation in SS: Assess/Block/Sedation-SS Anesthetic Plan Anesthetic Plan: GA and Agree w/ Assess. and Plan Disposition: Standard PACU
[2021-04-16] VITALS (7 sets, daily range): BP systolic 122–140; BP diastolic 74–101; PULSE 77–88; RESP 16; TEMP 36.2–36.4; O2SAT 97–99; BMI 28.8
[2021-04-16] MEDS: Lactated Ringers 1,000 ML 100 ML IVCONT (06:44)
--- NOTE | 2021-04-16 07:57 | MHC.SHP ---
Pre-Procedural Eval Section A Date of Service: 04/16/21 The patient is an INPATIENT: No Changes since office visit: No Cold of Flu in the past 2 weeks, No New Medical Problems, No Changes in Medication and No Patient answered all questions The History & Physical has been completed within 30 days and I have reviewed it.: Yes Section B Chief Complaint: index finger fx and repair Allergies: Allergies Allergy/AdvReac Type Severity Reaction Status Date / Time No Known Allergies Allergy Mild N/A Verified 04/16/21 06:44 Plan I have reviewed the history and physical and performed a pertinent physical examination on my patient. No changes have occurred unless specified.
--- NOTE | 2021-04-16 07:58 | P.OP_ITS ---
Operative Note Operative Note Date of Service: 04/16/21 Narrative: Operative Note Narrative: Preop diagnosis: 1. Left index finger Stiff PIP and D IP joints Postop diagnosis: Same Procedure: 1. Left index finger PIP joint closed manipulation 2. Left index finger D IP joint closed manipulation Surgeon: Deja Walker MD Anesthesia: General Findings: initially both the PIP and D IP joints were affectively stuck in extension with no active or passive motion. Following closed manipulation the passive range of motion in the PIP joint was from 0-95 degrees, and in the D IP joint it was from 0 to 55 degrees. The index finger could then be brought down to a closed fist with the adjacent digits. Also, passive flexion at the wrist resulted in extension of the index finger at the MCP PIP and D IP joints along with the adjacent digits. Implants: None Tourniquet time: 26 minutes EBL: 5.0 ml Specimen: none Drains: None Complications: None Disposition: Brought to the recovery room in stable condition Plan: early appointment this week with our OT hand therapist to continue to work on range of motion. Follow-up in 10-14 days for wound check, and to check range of motion Indications: The patient is a [age] year old man with a stiff left index finger following an open injury caused by table saw several months ago. . The risks and benefits of operative treatment, including but not limited to risk of damage to blood vessels, nerves, tendons, infection, recurrence, persistent pain or numbness, incomplete resolution of preoperative symptoms, or need for further surgery were discussed with the patient and they wished to proceed with surgery. Procedure: Once consent was obtained patient was brought back to the operating suite and placed in the operating table in a supine position. . Perioperative antibiotics and anesthesia was administered by the anesthesia team. A tourniquet was applied to the proximal aspect of the Left upper extremity and the limb was prepped and draped in a standard surgical fashion. The limb was elevated exsanguinated with Esmarch bandage and the tourniquet inflated to 250 mm of mercury for a total tourniquet time of 26 minutes. I began with a gentle closed manipulation of the index finger MCP PIP and D IP joints. Again initially the PIP and D IP joints were affectively stuck in full extension with little to no passive motion at either joint , and no active mo tion in either joint. With time we made very good progress in improving his passive flexion at the PIP joint eventually to 95 degrees. The D IP joint we were able to improved to about 55 degrees of flexion. Once I appreciated that we had made sufficient progress from our closed manipulation, and we were likely not going to need to open the finger, the tourniquet was deflated. I was concerned about whether the extensor mechanism may have been stuck down onto the dorsal aspect of the proximal phalanx from this open injury. However, after our closed reduction I also appreciated that with passive wrist flexion all of the digits including the index finger came nicely into extension including at the PIP and D IP joints. I was very pleased with the improvement in his range of motion. He did develop a small blood blister that went along the longitudinally oblique scar. I did open this at its distal aspect using a 22 gauge needle to facilitate drainage. A digital block was performed using some 0.5% plain Marcaine for postop pain control. A Band-Aid was placed over the radial aspect of the D IP joint where I made a small opening to drain the blood blister. All digits were well vascularized conclusion of the case.
== END 2021-04-16 11:16 | disposition home or self-care (01) ==
PROVIDERS: PCP Internal Medicine; Visit Provider Orthopaedic Surgery
PROC: (CPT 26340; principal; 2021-04-16 07:30)
DX: M25.642 Stiffness of left hand, not elsewhere classified (principal); S60.421A Blister (nonthermal) of left index finger, initial encounter; Z87.81 Personal history of (healed) traumatic fracture; W31.2XXA Contact with powered woodworking and forming machines, initial encounter; Y93.H3 Activity, building and construction; Y92.009 Unspecified place in unspecified non-institutional (private) residence as the place of occurrence of the external cause; Y99.8 Other external cause status; Z87.891 Personal history of nicotine dependence
CPT/HCPCS: 26340 ×2; 10140; J0690; J1100; J1885; J2250; J2405; J3010

== ENCOUNTER → 2021-05-08 13:03 | Outpatient (BNVA) | payer OTHER, SELFPAY | PROVIDERS: PCP Internal Medicine; Visit Provider Orthopaedic Surgery | DX: S62.611D Displaced fracture of proximal phalanx of left index finger, subsequent encounter for fracture with routine healing (principal); M25.642 Stiffness of left hand, not elsewhere classified | CPT/HCPCS: 99212 ==

== ENCOUNTER → 2021-05-16 11:06 | Outpatient (BNVA) | payer OTHER, SELFPAY | PROVIDERS: PCP Internal Medicine; Visit Provider Orthopaedic Surgery | DX: S62.621D Displaced fracture of middle phalanx of left index finger, subsequent encounter for fracture with routine healing (principal); S62.611D Displaced fracture of proximal phalanx of left index finger, subsequent encounter for fracture with routine healing; S61.012D Laceration without foreign body of left thumb without damage to nail, subsequent encounter; M25.642 Stiffness of left hand, not elsewhere classified | CPT/HCPCS: 99212 ==

== ENCOUNTER 2021-05-28 11:00 | Outpatient (RCR) | payer OTHER, SELFPAY ==
--- NOTE | 2021-04-17 14:15 | MHC.OT.OEV ---
[address] [phone] F: [phone] Occupational Therapy Evaluation Diagnosis: S/P CLOSED MANIPULATION L IF PIP AND DIP JOINTS Date of Onset: 11/19/20 Date of Surgery: 04/16/21 Attending Provider: Deja Walker Prescribed Treatment: EVAL AND JODEE JAMISON Follow Up Appointment: 05/01/21 History of Current Condition: 55 yo male was using a table saw at home, saw caught and hand was laceration. Went to the ED and was found to have volar thumb and dorsal index lacerations w/ index mid and prox phalanx fractures. Tendons intact, wound debrided and sutured. Seen for 13 outpatient OT visits from 12/28/20 through 02/20/21. On 04/16/21 patient underwent 1. Left index finger PIP joint closed manipulation 2. Left index finger D IP joint closed manipulation with Dr Walker. She was able to obtain PIP 0-95 and DIP 0-55 in the OR. IF to fully closed fist. Significant Medical History: HX BACK PAIN Precautions/Contraindications: LANGUAGE BARRER PAIN Patient Goals: INCREASE STRENGTH IN LEFT HAND Hand Dominance: Right Observations: BAND AID TO TIP OF INDEX FINGER QuickDASH Score: 18% Prior Level of Function and Occupation Self Care, Employment, Leisure: DISABLED. HOBBIES: ENJOYS CARPENTRY Living Situation, Family and/or Social Support: LIVES WITH SPOUSE AND TWO GRADE [employer]CHO[employer] SONS Current Level of Function and Occupation Self Care, Employment, Leisure: REPORTS MILD DIFFICULTIES WITH BUTTONS, SEVERE DIFFICULTIES WITH OPENING TIGHT JAR. DECREASED STRENGTH THROUGH L HAND TO CARRY HEAVY ITEMS. USING DOMINANT R HAND FOR MOST TASKS. Sleep: NO DIFFICULTIES Pain Assessment Pain Score: 7-8/10 Pain Scale Used: Numeric (0 - 10) Pain Location and Description: LEFT IF VOLAR DIPj AND PIPj 7/10 AT REST, 8/10 WITH USE/ROM Aggravating Factors: MOVEMENT Alleviating Factors: PAIN MEDICATION Skin and Soft Tissue Assessment Skin and Soft Tissue: Redness Swelling Scar Tissue Comments: HEALED DORSAL SCAR WITH REDNESS, EDEMA THROUGH DIP AND PIPj. SMALL BLOOD BLISTER AT DIPj. Sensory Assessment Temperature: Light Touch: WFL Proprioception: Vibration: Comments: DENIES SENSORY CHANGES, LIGHT TOUCH INTACT TO IF Edema Assessment Upper Extremity: Left Impaired Lower Extremity: Comments: MILD EDEMA THROUGH INDEX FINGER AND DORSAL HAND CIRCUMFERENCE OF MCPs D2-D5 LEFT 21.3 CM, RIGHT 20.9 CM Dexterity Assessment Dexterity: Left Impaired Comments: FUNCTIONAL DEXTERITY TEST: LEFT 30 SECONDS (MODIFIED TECHNIQUE WITH INCREASED UTILIZATION OF BOARD TO ROTATE DOWELS), R 19 SECONDS AROM(PROM) Strength Wrist Flexion: L 60 Extension: L 65 Ulnar Deviation: Radial Deviation: Comments: Flexion: Extension: Ulnar Deviation: Radial Deviation: Comments: Digits Index MCP: L 74, R 76 PIP: L 50, R 88 DIP: L 32, R 66 Long MCP: PIP: DIP: Ring MCP: PIP: DIP: Small MCP: PIP: DIP: Comments: ROM IMPROVED AFTER HEAT AND STRETCH GROSSLY ABOUT 15 DEGREES AT PIPj Gross Grasp: L NT, R 70 Lateral Pinch: L NT, R 19 Two-Point Pinch: L NT, R 19 Three-Jaw Matt: L NT, R 18 Comments: Patient Education Primary Language: Rubber Goods Inspector Required: Yes Current Knowledge: Understands information with skills for self-management Teaching Method: Audio/Video Demonstration Handouts Phone Call Verbal Education Needs Identified on Evaluation: ADL's Disease Information Equipment Use Exercise Pain Safety How did patient/family demonstrate learning? Patient demonstrates Patient verbalizes Barriers to Learning: None Readiness for Learning: Accepting Who was educated? Patient Comments: [employer] #[id number] Plan of Care Assessment: MR JOCELYNE CHAO UNDERWENT A CLOSED MANIPULATION OF HIS LEFT INDEX PIP AND DIP JOINTS ON 04/16/[address] WALKER. PRIOR TO THIS MANIPULATION, HE WAS VERY LIMITED WITH HIS FLEXION IN HIS NON DOMINANT LEFT INDEX FINGER. HE PREVIOUSLY ATTENDED OUTPATIENT OT AFTER HIS INJURY IN THE FALL OF 2020. ON THIS DATE, Pt REPORTED ABOUT 7/10 PAIN IN LEFT INDEX FINGER WITH P/AROM. HE IS ABLE TO COMPLETE MOST ADLs AND IADLs USING COMPENSATORY TECHNIQUES AND HIS DOMINANT RIGHT HAND. AN 18% LIMITATION IS REPORTED PER THE QUICK DASH ASSESSMENT. ONGOING SKILLED OT IS WARRANTED TO ACHIEVE MAXIMUM FUNCTIONAL LEVEL AND IMPROVE QOL. STG Duration: 2 WEEKS Short Term Goals: IND HEP IND HEAT/ICE USE IMPROVE DEXTERITY IN L HAND TO FUNCTIONAL PER FUNCTIONAL DEXTERITY TEST REPORT <4/10 PAIN AT REST AND AROM INCREASE PIPj TO 70 DEGREES INCREASE DIPj TO 45 DEGREES IND ORTHOSIS USE LTG Duration: 4 WEEKS Alf Goals: IND EDEMA MANAGEMENT REPORT <2/10 PAIN WITH IADLs AND LIFTING >10 POUNDS MAINTAIN TIP TO PALM L GRASP >50 POUNDS Frequency and Duration: The patient will be seen 3X/WEEK FOR 4 WEEKS Treatment Plan: Therapeutic Exercise Therapeutic Activity Home Exercise Program Splinting Neuro Re-ed Patient Education Desensitization/Sensory Re-ed Edema Control ADL Training Ultrasound NMES Iontophoresis Paraffin Fluidotherapy MHP Cold Packs Joint Mobilization Soft Tissue Mobilization Kinesiotaping Other (see comments) Electronically Signed By: ALLYSON GU OTR/L Reviewed/agree with student documentation: N/A Therapist: Please sign and return to therapist, Thank you for your referral.
--- NOTE | 2021-06-04 09:58 | MHC.OT.DC ---
[address] [phone] F: [phone] Occupational Therapy Discharge Note Provider: Deja Walker Diagnosis: S/P CLOSED MANIPULATION L IF PIP AND DIP JOINTS Date of Surgery: 04/16/21 Date of Evaluation: 04/17/21 Date of Discharge: 06/04/21 Treatments to Date: 13 Cancellations to Date: 2 No Shows to Date: 0 Discharge Status: Improved Function Independent with HEP Patient Elected to Stop Discharge Summary: MR JOCELYNE CHAO HAS ATTENDED OUTPATIENT OT TO IMPROVE ROM AND STRENGTH IN HIS L INDEX FINGER FOLLOWING A CLOSED MANIPULATION. 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 HE REPORTED NO PAIN AT REST AND MILD-MODERATE PAIN WITH END RANGE FLEXION AT PIPj. AT TIME OF DISCHARGE, HE WAS ABLE TO MAINTAIN TIP TO PALM OF HIS INDEX FINGER. HE WAS ATTENDING OT 3X A WEEK WHERE HE WAS BEING CHALLENGED TO IMPROVE HIS PIP AND DIP FLEXION AT EACH SESSION. HIS DOPE SPRAYER STRENGTH WAS STRONG AND HE DENIED LIMITATIONS IN DAILY ACTIVITIES. Pt HAS ELECTED TO DISCONTINUE OUTPATIENT OT AND WILL BE TRANSITIONED TO A HOME BASED PROGRAM. D/C OT SERVICES. Electronically Signed By: CHRISTA HEAD/Hira Reviewed/agree with student documentation: N/A Therapist: Please Sign and return to therapist, thank you for your referral.
== END 2021-06-04 09:55 | disposition home or self-care (01) ==
LOC: HO.OT 11:00
PROVIDERS: PCP Internal Medicine; Visit Provider Orthopaedic Surgery
DX: M25.642 Stiffness of left hand, not elsewhere classified (principal)
CPT/HCPCS: 29130; 29131; 97035; 97110; 97140; 97166; 97530; 97760

== ENCOUNTER 2021-11-07 20:05 | Emergency (ER) | payer OTHER, SELFPAY ==
[2021-11-07 21:10] VITALS: BP 133/83; PULSE 91; RESP 20; TEMP 36.9; O2SAT 97
[2021-11-07 21:35] VITALS: BP 133/83; PULSE 91; RESP 16; TEMP 36.9; O2SAT 99; BMI 29.5
--- NOTE | 2021-11-07 22:57 | ED_ITS ---
HPI - General Adult General Chief complaint: Wound/Laceration Stated complaint: left finger laceration Time Seen by Provider: 11/07/21 22:57 Source: patient and family () Mode of arrival: ambulatory Limitations: no limitations History of Present Illness HPI narrative: Patient is a 56 year old male presenting to the emergency department today with a left thumb laceration. Patient states that he was using a saw when he caught his left thumb in it. Patient states that he is up to date on his tetanus because he had a similar accident last year. Patient denies any dizziness, lightheadedness, abdominal pain, nausea, vomiting, fever, chills, blurry vision, double vision, loss of vision, chest pain, difficulty breathing, shortness of breath, back pain, night sweats, pain with urination, increased urinary frequency, increased urinary urgency, blood in his urine or stool, syncope or a near syncopal episode, bowel incontinence, bladder incontinence, bowel retention, bladder retention, or any other complaints at this time. Onset (ago): minute(s) Location: left and upper extremity (thumb) Radiation: non-radiation Severity: mild Severity scale (1-10): 2 Pain Consistency: constant Relieving factors: none Exacerbating factors: none Associated symptoms: denies other symptoms Treatments prior to arrival: none Related Data Home Medications Medication Instructions Recorded Confirmed atorvastatin 40 mg tablet 1 tab PO BEDTIME 04/09/21 04/09/21 cholecalciferol (vitamin D3) 25 1 cap PO DAILY 04/09/21 04/09/21 mcg (1,000 unit) capsule Previous Rx's Medication Instructions Recorded acetaminophen 500 mg tablet 1,000 mg PO QID PRN fever or pain 11/19/20 (Tylenol Extra Strength) #14 tabs cephalexin 500 mg capsule 500 mg PO Q6H 7 days #28 caps 11/07/21 Allergies Allergy/AdvReac Type Severity Reaction Status Date / Time No Known Allergies Allergy Mild N/A Verified 05/16/21 11:12 Review of Systems Constitutional: Constitutional: Reports no additional constitutional complaints, Denies chills, Denies fever(s) and Denies night sweats Eyes: Eyes: Reports no additional eye complaints, Denies blurry vision, Denies change in vision, Denies diplopia, Denies eye discharge, Denies loss of vision and Denies eye pain ENT: Denies dizziness Cardiovascular: Cardiovascular: Reports no additional cardiovascular complaints, Denies chest pain, Denies lightheadedness, Denies Loss of Consciousness and Denies dyspnea Respiratory: Respiratory: Reports no additional respiratory complaints and Denies dyspnea Gastrointestinal: Gastrointestinal: Reports no additional gastrointestinal complaints, Denies abdominal pain, Denies melena, Denies hematochezia, Denies change in bowel habits and Denies change in stool character Genitourinary: Genitourinary: Reports no additional male genitourinary complaints, Denies hematuria, Denies oliguria, Denies difficulty urinating, Denies dysuria, Denies urinary frequency, Denies urinary hesitancy, Denies urinary incontinence and Denies urinary urgency Musculoskeletal: Musculoskeletal: Reports no additional musculoskeletal complaints, Denies numbness and Denies tingling Integumentary/Breasts: Comments: left thumb laceration Neurologic: Denies dizziness, Denies loss of vision, Denies numbness and Denies tingling Psychiatric: Psychiatric: Reports no additional psychiatric complaints Endocrine: Endocrine: Reports no additional endocrine complaints Hematologic/Lymphatic: Hematologic/Lymphatic: Reports no additional hematologic/lymphatic complaints Allergic/Immunologic: Allergic/Immunologic: Reports no additional allergic/immunologic complaints [facility] Past Medical History Attestation statement: The following information was validated with the patient. 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 Physical Exam ED Vital Signs: Vital Signs - 24 hr 11/07/21 21:10 11/07/21 21:35 11/07/21 23:37 Temperature 98.5 F 98.5 F 97.7 F Pulse Rate 91 91 80 Respiratory Rate 20 16 16 Blood Pressure 133/83 133/83 130/75 Pulse Oximetry 97 99 98 Oxygen Delivery Method Room Air Room Air Room Air BMI result Body Mass Index 29.5 Const General: cooperative, no acute distress, alert and awake Nutritional Appearance: well nourished Orientation/consciousness: patient oriented x3 Limitations: no limitations HENMT Head: Yes normal to inspection and Yes atraumatic Ears: hearing grossly normal bilaterally and external ears normal General nose exam: Normal external nose present, no nasal discharge noted and no epistaxis Face and sinus: Yes normal facial exam, No abrasion and No laceration Mouth: Normal oral and palatal mucosa present, no drooling and no muffled voice Eyes General: appearance normal, both eyes and all related structures Periorbital: periorbital findings normal Eyelids: Yes eyelids normal Conjunctivae: conjunctivae normal Pupils: Equal, round and reactive pupils present EOM: EOMs intact bilaterally Neck Neck: Yes normal visual inspection, Yes full ROM and Yes no lymphadenopathy Chest Chest palpation & inspection: normal inspection of the chest Resp Effort & Inspection: normal respiratory effort and able to speak in complete sentences Auscultation: clear to auscultation bilaterally Cardio Rate: regular rate Rhythm: regular rhythm GI Inspection: Yes normal to inspection Skin Other: left thumb abrasion and laceration, open area measures 0.5cm but the rest of the wound is abrasions Neuro General: patient oriented x3 and moves all extremities Cranial nerves: Yes Equal, round and reactive pupils present Cognition (Neuro): normal cognition Motor exam (neuro): 5/5 motor strength present throughout Sensory Exam: Normal double simultaneous stimulation for sensation Coordination: [id number] test normal Extrem General: Yes full ROM and Yes capillary refill normal Psych Appearance: grossly normal Mental Status: mental status grossly normal Affect: normal affect Attitude: cooperative Thought process: Normal thought process present Thought content: Normal thought content present Insight: Good insight present (Psych) Procedures Laceration Laceration 1: Site: other (thumb) Side (If applicable): left Size (cm): 0.5 Description: flap and irregular Depth: simple, single layer Local Anesthetic: lidocaine 2% Amount of anesthesia used (mL): 2 Pre-repair: wound explored, irrigated extensively and deep structures intact Skin layer closed with: other (prolene) Size (cm): 5-0 Number of sutures: 1 Medical Decision Making MDM Narrative Medical decision making narrative: Patient is a 56 year old male presenting to the emergency department today with a left thumb laceration. Patient's physical exam showed a left thumb wound consisting of a laceration measuring 0.5cm and abrasions. I explained my physical exam findings to the patient and the patient's . I answered all questions asked by the patient and the patient's . Patient's wound was irrigated extensively. Patient's laceration was repaired with 1 suture in the 0.5cm gaping area and the sutured area with the abrasion was covered with dermabond. I stressed the importance of the patient taking his medication as prescribed. I stressed the importance of the patient following up with his primary care provider. I stressed the importance of the patient have his suture removed in 10-14 days. I stressed the importance of the patient NOT getting the repaired area wet. I stressed the importance of the patient performing daily wound checks and dressing changes. I stressed the importance of the patient returning to the emergency department immediately if his symptoms were to worsen or if he were to develop any dizziness, shortness of breath, difficulty breathing, chest pain, blurry vision, loss of vision, nausea, vomiting, abdominal pain, fever, chills, back pain, or any other complaints. Patient and the patient's verbalized agreement and understanding with this treatment plan and discharge. Differential Diagnosis Differential Diagnosis: abrasion, laceration Medical Records Medical records reviewed: Yes I reviewed the patient's medical records. Discharge Plan Discharge Clinical Impression: Laceration Patient Disposition: Home, Self-Care Instructions: Care For Your Stitches (ED), Skin Adhesive Care (ED) Additional Instructions: Do NOT get the repaired area wet for 7 days. Do NOT soak the sutured area. Have your sutures removed in 10-14 days. Follow up with your primary care provider. Return to the emergency department immediately if your symptoms worsen or if you develop any dizziness, shortness of breath, difficulty breathing, chest pain, blurry vision, loss of vision, nausea, vomiting, abdominal pain, fever, chills, back pain, or any other complaints. Prescriptions: New cephalexin 500 mg capsule 500 mg PO Q6H 7 Days Qty: 28 0RF No Action acetaminophen [Tylenol Extra Strength] 500 mg tablet 1,000 mg PO QID PRN (Reason: fever or pain) Qty: 14 0RF atorvastatin 40 mg tablet 1 tab PO BEDTIME cholecalciferol (vitamin D3) 25 mcg (1,000 unit) capsule 1 cap PO DAILY Referrals: Vernell Odonnell MD [Primary Care Provider] - Interventions: ED Discharge Assessment Last Done: 11/07/21 23:49 Discharge Date/Time: 11/07/21 23:50 Print Language: Hungarian
[2021-11-07] MEDS: Lidocaine HCl 2 % MPF 5 ML VIAL 4 ML SUBCUT (23:07)
[2021-11-07 23:37] VITALS: BP 130/75; PULSE 80; RESP 16; TEMP 36.5; O2SAT 98
[2021-11-07] MEDS: cephALEXin 500 MG CAPSULE PO (23:47)
== END 2021-11-07 23:50 | disposition home or self-care (01) ==
PROVIDERS: Emergency Provider Emergency Medicine; PCP Internal Medicine
DX: S61.012A Laceration without foreign body of left thumb without damage to nail, initial encounter (principal); W26.9XXA Contact with unspecified sharp object(s), initial encounter; Y93.9 Activity, unspecified; Y92.9 Unspecified place or not applicable; Y99.9 Unspecified external cause status; Z79.899 Other long term (current) drug therapy
CPT/HCPCS: 12001; 99283; 99284

== ENCOUNTER 2023-02-23 09:46 | Emergency (ER) | payer OTHER, SELFPAY ==
[2023-02-23 10:14] VITALS: BP 134/82; PULSE 95; RESP 18; TEMP 36.4; O2SAT 97; BMI 28.3
[2023-02-23 10:31] LABS: MANUAL DIFF FLAG NO
[2023-02-23 10:33] LABS: Appearance Urine Clear; Color Urine Yellow; Glucose Urine UA Negative (Negative); Leukocyte Esterase Urine Negative (Negative); Nitrite Urine Negative (Negative); Specific Gravity - Urine 1.025 (1.005-1.025); Urine Blood Negative (Negative); Urine Ketones Trace mg/dL (Negative); Urine Protein Negative (Neg-Trace)
[2023-02-23 10:35] LABS: Basophils Percent Auto 0.5 % (0-2); Eosinophils Absolute Auto 0.1 X10*3/uL (0.0-0.4); Eosinophils Percent Auto 0.8 % (0-4); Hematocrit 48.8 % (42.0-52.0); Hemoglobin 15.9 g/dl (14.0-18.0); Imm Gran Abs Auto 0.02 X10*3/uL (0.00-0.03); Imm Gran Pct Auto 0.3 % (0.0-0.4); Lymphocytes Absolute Auto 1.8 X10*3/uL (1.2-4.9); Lymphocytes Percent Auto 29.6 % (20-40); Mean Corpuscular HGB Conc 32.6 g/dl (31.0-36.0); Mean Corpuscular Hemoglobin 27.8 pg (27.0-33.0); Mean Corpuscular Volume 85.5 fL (80.0-98.0); Monocytes Percent Auto 16.2 % (2-11); Neutrophils Absolute Auto 3.1 x10*3/uL (2.0-8.3); Neutrophils Percent Auto 52.6 % (45-73); Platelet Count 216 X10*3/uL (160-400); Red Blood Count 5.71 X10*6/uL (4.60-5.80); Red Cell Distribution Width 13.6 % (11.0-16.0); White Blood Count 5.9 X10*3/uL (4.8-10.8)
[2023-02-23 10:47] LABS: Alanine Aminotransferase 28 U/L (0-40); Albumin Level 4.4 g/dL (3.5-5.0); Alkaline Phosphatase 90 U/L (39-117); Anion Gap 13 (12-20); Aspartate Amino Transferase 28 U/L (5-37); Bilirubin Total 0.4 mg/dL (0.0-1.0); Blood Urea Nitrogen 11 mg/dL (9-16); Calcium 9.5 mg/dL (8.4-10.2); Carbon Dioxide 30 mmol/L (22-29); Chloride 101 mmol/L (96-108); Creatinine Clr Calc Pharmacy 56.2; Estimated Glomerular Filt Rate 55; Glucose Random 93 mg/dL (60-115); Potassium 4.5 mmol/L (3.3-5.1); Sodium 139 mmol/L (135-145)
[2023-02-23 11:22] LABS: Influenza A PCR POSITIVE (Negative); Influenza B PCR NEGATIVE (Negative); Resp Syncy Virus RNA Qual PCR NEGATIVE (Negative); SARS COV2 PCR INHOUSE NEGATIVE (Negative)
--- NOTE | 2023-02-23 11:51 | ED_ITS ---
HPI - General Adult General Chief complaint: General Medical Stated complaint: Pain when urinating Time Seen by Provider: 02/23/23 11:46 Source: patient Mode of arrival: ambulatory Limitations: no limitations History of Present Illness HPI narrative: This is a 57-year-old male presenting with fatigue, malaise, body aches and pains, lower back pain, fever T-max 101 degrees, headache, lower abdominal discomfort, burning upon urination, cough, nasal congestion all ongoing for the past few days. Patient denies sick contacts. Denies chest pain, shortness of breath, nausea, vomiting, diarrhea, blood in stool or vomit, Related Data Home Medications Medication Instructions Recorded Confirmed atorvastatin 40 mg tablet 1 tab PO BEDTIME 04/09/21 04/09/21 cholecalciferol (vitamin D3) 25 1 cap PO DAILY 04/09/21 04/09/21 mcg (1,000 unit) capsule Previous Rx's Medication Instructions Recorded acetaminophen 500 mg tablet 1,000 mg (2 x 500 mg) PO QID PRN 11/19/20 (Tylenol Extra Strength) fever or pain #14 tabs cephalexin 500 mg capsule 500 mg PO Q6H 7 days #28 caps 11/07/21 Allergies Allergy/AdvReac Type Severity Reaction Status Date / Time No Known Allergies Allergy Mild N/A Verified 02/23/23 10:14 Review of Systems 2 Review of Systems: Constitutional : No Weight loss, + Fever, + Chills, + Fatigue, + Malaise ENT/Mouth : No sore throat, No Rhinorrhea, + congestion Eyes: No Eye Pain, No Swelling, No Redness Cardiovascular : No Chest Pain, No SOB, No Dyspnea on Exertion, No Orthopnea, No Edema, No Palpitations Respiratory : + Cough, No Sputum, No Wheezing Gastrointestinal : No Nausea, No Vomiting, No Diarrhea, No Constipation, No abdominal Pain, No Hematochezia, No Melena Genitourinary : No Dysuria, No Urinary Frequency, No Hematuria, Musculoskeletal : No joint pain, + Myalgias, No Joint Swelling, + back pain Skin : No Skin Lesions, No rash Neuro : No Weakness, No Numbness, No Dizziness, + Headache Psych : No Anxiety/Panic, No Depression All other systems reviewed and are negative Yes all other systems are reviewed and are negative PMFSH Past Medical History Attestation statement: The following information was validated with the patient. 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 Oriented X3.? No acute distress.? Head: Normocephalic, atraumatic, no step-offs or deformities Eyes: Pupils equal, round and reactive to light.? Neck: Normal inspection.? Neck supple.? No meningeal sign CVS: Normal heart rate and rhythm.? Pulses normal.? Respiratory: No respiratory distress.? Breath sounds normal.? Abdomen: Soft and nontender.?+ abrasion to umbillicus Skin: Skin warm and dry.? Normal skin color.? Normal skin turgor.? Extremities: No lower extremity edema.? No calf ttp. 5/5 strength to bilateral upper and lower extremities Back: No midline tenderness, no C-spine tenderness, full range of motion, no CVA tenderness bilaterally. No midline back tenderness. Neuro: Oriented X 3.? No motor deficit.? No sensory deficit. CN 2-12 intact . Normal sbyvnv-iv-luxq, hqut-be-mwwe steady tandem gait normal coordination. NIH stroke scale 0 Course Reevaluation(s) Reevaluation #1: CBC unremarkable. Chemistry no acute findings requiring intervention. UA without infection. Patient's influenza positive. This is likely contributing to patient's symptoms/causing them. Patient to be discharged home with supportive measures. No indication for Tamiflu. Educated patient on diagnosis and treatment plan, answered all question, patient verbalizes understanding. At this time patient will be discharged home, advised to return with new or worsening symptoms. Educated on worrisome signs and symptoms and when to return. At this time I feel comfortable discharge home. Time: 11:55 Medical Decision Making Medical Decision Making [facility] Narrative: 57-year-old male presents with fatigue, malaise, myalgias, headache, lower back pain, abdominal pain, cough, nasal congestion, dysuria for the past few days Physical exam benign no abdominal tenderness to palpation This is likely viral illness. Unlikely acute respiratory distress, pneumonia, epidural abscess, cauda equina, intracranial hemorrhage, stroke, posterior stroke (NIH stroke scale 0), acute abdomen, appendicitis, cholecystitis, diverticulitis, pancreatitis, obstruction, pneumonia. No signs of meningitis, encephalitis. Will rule out metabolic derangements and UTI Plan at this time viral testing, labs, urine Differential Diagnosis Differential Diagnoses: The differential diagnosis associated with the presentation includes This is likely viral illness. Unlikely acute respiratory distress, pneumonia, epidural abscess, cauda equina, intracranial hemorrhage, stroke, posterior stroke (NIH stroke scale 0), acute abdomen, appendicitis, cholecystitis, diverticulitis, pancreatitis, obstruction, pneumonia. No signs of meningitis, encephalitis. Will rule out metabolic derangements and UTI Admission/Observation Consideration of admission/observation: Escalation of care including admission/observation considered Unlikely Lab Data [facility] Lab Attestation statement: I reviewed the patient's lab results. 02/23/23 10:27 02/23/23 10:27 Labs: Lab Results 02/23/23 Range/Units 10:27 WBC 5.9 (4.8-10.8) X10*3/uL RBC 5.71 (4.60-5.80) X10*6/uL Hgb 15.9 (14.0-18.0) g/dl Hct 48.8 (42.0-52.0) % MCV 85.5 (80.0-98.0) fL MCH 27.8 (27.0-33.0) pg MCHC 32.6 (31.0-36.0) g/dl RDW 13.6 (11.0-16.0) % Plt Count 216 (160-400) X10*3/uL MPV 10.0 (9.4-12.4) fL Immature Gran % (Auto) 0.3 (0.0-0.4) % Neut % (Auto) 52.6 (45-73) % Lymph % (Auto) 29.6 (20-40) % [place]minn % (Auto) 16.2 H (2-11) % Eos % (Auto) 0.8 (0-4) % Baso % (Auto) 0.5 (0-2) % Lymph # (Auto) 1.8 (1.2-4.9) X10*3/uL [place]minn # (Auto) 1.0 (0.1-1.2) X10*3/uL Eos # (Auto) 0.1 (0.0-0.4) X10*3/uL Baso # (Auto) 0.0 (0.0-0.2) X10*3/uL Abs Immat Gran (auto) 0.02 (0.00-0.03) X10*3/uL Absolute Neuts (auto) 3.1 (2.0-8.3) x10*3/uL Absolute Nucleated RBC 0.000 (0.0-0.012) X10*3/uL Nucleated RBC % (auto) 0.0 (0.0-0.2) /100WBC Sodium 139 (135-145) mmol/L Potassium 4.5 (3.3-5.1) mmol/L Chloride 101 (96-108) mmol/L Carbon Dioxide 30 H (22-29) mmol/L Anion Gap 13 (12-20) BUN 11 (9-16) mg/dL Creatinine 1.34 (0.5-1.4) mg/dL Estim Creat Clear Calc 56.2 Estimated GFR 55 Random Glucose 93 (60-115) mg/dL Calcium 9.5 (8.4-10.2) mg/dL Total Bilirubin 0.4 (0.0-1.0) mg/dL AST 28 (5-37) U/L ALT 28 (0-40) U/L Alkaline Phosphatase 90 (39-117) U/L Total Protein 8.0 (6.5-8.0) g/dL Albumin 4.4 (3.5-5.0) g/dL Urine Color Yellow Urine Appearance Clear Urine pH 6.0 (5.0-9.0) Ur Specific [place] 1.025 (1.005-1.025) Urine Protein Negative (Neg-Trace) mg/dL Urine Glucose (UA) Negative (Negative) mg/dL Urine Ketones Trace (Negative) mg/dL Urine Blood Negative (Negative) Urine Nitrite Negative (Negative) Ur Leukocyte Esterase Negative (Negative) Influenza Type A (PCR) POSITIVE A (Negative) Influenza Type B (PCR) NEGATIVE (Negative) RSV RNA Qual (PCR) NEGATIVE (Negative) SARS-CoV-2 RNA (RT-PCR) NEGATIVE (Negative) Tests considered The following testing was considered but not selected: Considered CT of the abdomen however no tenderness on palpation. He is focusing on the abrasion inside his belly button. Does not appear to be cellulitic or abscess peer Prescription Management I considered prescription management with: Other (Prednisone, albuterol) Critical Care Time Critical Care Time Critical Care Time: No Discharge Plan Discharge Clinical Impression: Influenza A, Dysuria, Abdominal pain Patient Disposition: Home, Self-Care Instructions: Influenza (ED), Dysuria (ED), Abdominal Pain (ED) Additional Instructions: Take your medications as prescribed. If you were prescribed antibiotics today, it is important that you take your medication to their entirety, do not skip any doses, do not finish them early. Follow-up with your primary care provider this week. Return to the emergency department with new or worsening symptoms. Such as fevers, chills, chest pain, shortness of breath, nausea, vomiting, dizziness, headache, vision changes, lethargy In case of emergency call 911 Can take ibuprofen every 6 hours, Tylenol every 4 as needed for pain or discomfort Prescriptions: No Action acetaminophen [Tylenol Extra Strength] 500 mg tablet 1,000 mg PO QID PRN (Reason: fever or pain) Qty: 14 0RF atorvastatin 40 mg tablet 1 tab PO BEDTIME cholecalciferol (vitamin D3) 25 mcg (1,000 unit) capsule 1 cap PO DAILY cephalexin 500 mg capsule 500 mg PO Q6H 7 Days Qty: 28 0RF Referrals: Vernell Odonnell MD [Primary Care Provider] - 2 days Stand Alone Forms: Work/School Release
[2023-02-23 12:19] LABS: Lipase 19 U/L (8-78)
== END 2023-02-23 12:30 | disposition home or self-care (01) ==
PROVIDERS: Physician Assistant; Emergency Provider Emergency Medicine; PCP Internal Medicine
DX: J10.1 Influenza due to other identified influenza virus with other respiratory manifestations (principal); R30.0 Dysuria; R10.30 Lower abdominal pain, unspecified; R50.9 Fever, unspecified; M54.50 Low back pain, unspecified; R05.9 Cough, unspecified; R51.9 Headache, unspecified; Z20.822 Contact with and (suspected) exposure to COVID-19
CPT/HCPCS: 0241U; 80053; 81003; 83690; 85025; 99283; 99284

== ENCOUNTER 2023-06-20 08:07 | Outpatient (REF) | payer OTHER, SELFPAY ==
--- NOTE | ~2023-06-20 | XR_ITS ---
EXAMINATION: XR LUMBOSACRAL SPINE WITH OBLIQUES CLINICAL INFORMATION: Chronic back pain with bilateral sciatica. COMPARISON: 04/24/2018 x-rays lumbar spine. TECHNIQUE: 6 views of the lumbar spine. FINDINGS: Mild levoscoliosis of the lumbar spine. Redemonstration of anterior fusion hardware at L5-S1 which appears intact. Slight 1 mm gap between the posterior superior aspect of the prosthesis and the anterior aspect of the L5 vertebral body. Mild spondylosis in the remainder of the lumbar spine. Bilateral sacroiliac joints appear symmetric. XR/XR lumbar spine 4V min IMPRESSION: 1. Redemonstration of anterior fusion hardware at L5-S1 which appears intact. Slight 1 mm gap between the posterior superior aspect of the prosthesis and the anterior aspect of the L5 vertebral body. 2. Mild spondylosis in the remainder of the lumbar spine.
[2023-06-20 11:41] LABS: MANUAL DIFF FLAG NO
[2023-06-20 11:54] LABS: Basophils Percent Auto 0.5 % (0-2); Eosinophils Absolute Auto 0.1 X10*3/uL (0.0-0.4); Eosinophils Percent Auto 1.5 % (0-4); Hematocrit 45.9 % (42.0-52.0); Imm Gran Abs Auto 0.02 X10*3/uL (0.00-0.03); Imm Gran Pct Auto 0.3 % (0.0-0.4); Mean Corpuscular HGB Conc 32.7 g/dl (31.0-36.0); Mean Corpuscular Hemoglobin 27.7 pg (27.0-33.0); Mean Corpuscular Volume 84.7 fL (80.0-98.0); Mean Platelet Volume 10.8 fL (9.4-12.4); Monocytes Absolute Auto 0.6 X10*3/uL (0.1-1.2); Monocytes Percent Auto 10.3 % (2-11); Neutrophils Absolute Auto 3.3 x10*3/uL (2.0-8.3); Neutrophils Percent Auto 54.4 % (45-73); Platelet Count 278 X10*3/uL (160-400); Red Blood Count 5.42 X10*6/uL (4.60-5.80); Red Cell Distribution Width 13.2 % (11.0-16.0)
[2023-06-20 12:38] LABS: HIV AB/AG Nonreactive (Nonreactive); HIV Num 1 0.06 S/CO (0.00-0.99); ~HepC Num1 0.28 S/CO (0.00-0.79); ~Hepatitis C Antibody Nonreactive (Nonreactive)
[2023-06-20 12:40] LABS: Estimated Average Glucose 120 mg/dL; Hemoglobin A1c % 5.8 % (<6.0)
[2023-06-20 12:45] LABS: Vitamin D 25-OH Total 42.8 ng/mL (>30)
[2023-06-20 13:31] LABS: Alanine Aminotransferase 22 U/L (0-40); Alkaline Phosphatase 93 U/L (39-117); Anion Gap 11 (12-20); Aspartate Amino Transferase 21 U/L (5-37); Bilirubin Direct 0.2 mg/dL (0.0-0.5); Bilirubin Total 0.4 mg/dL (0.0-1.0); Blood Urea Nitrogen 15 mg/dL (9-16); Calcium 9.3 mg/dL (8.4-10.2); Carbon Dioxide 28 mmol/L (22-29); Chloride 103 mmol/L (96-108); Cholesterol 250 mg/dL (<200); Estimated Glomerular Filt Rate > 60; Glucose Random 98 mg/dL (60-115); HDL Cholesterol 42 mg/dL (>40); LDL Cholesterol Calculated 176 mg/dL (<100); Potassium 3.9 mmol/L (3.3-5.1); Sodium 138 mmol/L (135-145); Total Protein 7.3 g/dL (6.5-8.0); Triglycerides 160 mg/dL (<150)
== END 2023-06-20 08:08 | disposition home or self-care (01) ==
LOC: HO.HHCL 08:07
PROVIDERS: Visit Provider Internal Medicine
DX: Z00.00 Encounter for general adult medical examination without abnormal findings (principal); Z13.6 Encounter for screening for cardiovascular disorders; M54.42 Lumbago with sciatica, left side; M54.41 Lumbago with sciatica, right side; G89.29 Other chronic pain
CPT/HCPCS: 36415; 72110; 80048; 80061; 80076; 82306; 83036; 85025; 86803; 87389

== ENCOUNTER 2023-08-05 09:04 | Outpatient (AMB) | payer OTHER, SELFPAY ==
--- NOTE | 2023-08-05 09:14 | MHC.OFFVIS ---
Vital Signs 08/05/23 09:18 Height 5 ft 4 in Weight 166 lb BMI 28.5 BP 126/72 Blood Pressure Location Lt brachial Position Sitting Pulse 76 Intake Visit Reasons: Colonoscopy Screening Intake Note: Patient new consult for 2nd pre colonoscopy screening. Patient denies any GI issues. Learning And Development Coordinator Required: No Accompanied by: Spouse Allergies No Known Allergies Allergy (Mild, Verified 08/05/23 09:16) N/A Medication List - Last Reconciled 08/05/23 by Debbi Knutson PA-C acetaminophen (Tylenol Extra Strength) 1,000 mg (2 x 500 mg) PO QID PRN cholecalciferol (vitamin D3) 1 cap PO DAILY HPI Comments Details: A pleasant 57 y/o male referred for screening colonoscopy-his accompanies him and court interpreter Normal bowels appetite is good 2- pat. uncles - colon cancer- 2017- Dr. 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 Review of Systems Const All systems reviewed & are unremarkable except as noted in HPI and below Card Denies chest pain and Denies dyspnea Resp Denies dyspnea GI Denies abdominal pain, Denies change in bowel habits and Denies heartburn Physical Exam Vital Signs: Last Vital Signs Pulse 76 08/05/23 09:18 BP 126/72 08/05/23 09:18 BMI result Body Mass Index 28.5 Const General: cooperative, healthy appearing, comfortable, no acute distress and well groomed Orientation/consciousness: patient oriented x3 Limitations: language barrier Eyes Sclerae: sclerae normal Resp Effort & Inspection: normal respiratory effort and able to speak in complete sentences Auscultation: clear to auscultation bilaterally, no rales, no rhonchi and no wheezes Cardio Rate: regular rate Rhythm: regular rhythm Heart sounds: S1 normal heart sound present and S2 normal heart sound present GI Palpation (GI): Soft to palpation and nontender Auscultation: normal bowel sounds Neuro General: patient oriented x3 Extrem General: Yes full ROM Psych Appearance: grossly normal and well kempt Mental Status: mental status grossly normal Speech and movement: Normal speech and movement present Affect: normal affect Attitude: cooperative Thought process: Normal thought process present Thought content: Normal thought content present Insight: Good insight present (Psych) Judgement: Good judgement present (Psych) Assessment & Plan Assessment & Plan (1) Family history of colon cancer requiring screening colonoscopy: Comment: Screening colonoscopy reviewed colonoscopy 2017 Discussed procedure, rare risks need for escort Code(s): Z80.0 - Family history of malignant neoplasm of digestive organs Category: Medical Plan: Screening colonoscopy Plan Screening colonoscopy MiraLax prep Orders: Orders Colonoscopy - GI Use Only Today Z80.0 - Family history of malignant neoplasm of digestive organs Medications: New polyethylene glycol 3350 (Miralax) Take as directed by mouth the day before your procedure. 238 grams PO ONCE PRN 238 grams 0RF laxative effect 1 day bisacodyl (Dulcolax (bisacodyl)) Day before procedure @ 12 noon Take 4 tablets by mouth followed by large glass of water 20 mg (4 x 5 mg) PO ONCE PRN 4 tabs 0RF colonoscopy prep 1 day Z12.11 - Encounter for screening for malignant neoplasm of colon Patient Instructions: Screening colonoscopy MiraLax Gatorade prep, reviewed Opportunity for questions answered to his satisfaction Encouraged to call with questions or concerns Coding Level of Care Code New Pt Level 3 (67570) Diagnoses Family history of colon cancer requiring screening colonoscopy Z80.0 Time Spent (min) 30
[2023-08-05 09:18] VITALS: BP 126/72; PULSE 76; BMI 28.5
== END 2023-08-05 11:11 | disposition home or self-care (01) ==
PROVIDERS: PCP Internal Medicine; Visit Provider Physician Assistant
DX: Z80.0 Family history of malignant neoplasm of digestive organs (principal)
CPT/HCPCS: 99203

== ENCOUNTER → 2023-08-05 09:04 | Outpatient (BNVA) | payer OTHER, SELFPAY | PROVIDERS: PCP Internal Medicine; Visit Provider Physician Assistant | DX: Z12.11 Encounter for screening for malignant neoplasm of colon (principal); Z80.0 Family history of malignant neoplasm of digestive organs | CPT/HCPCS: 99202 ==

== ENCOUNTER 2024-01-13 06:17 | Day surgery (SDC) | payer OTHER, SELFPAY ==
--- NOTE | 2024-01-12 16:42 | MHC.SHP ---
Pre-Procedural Eval Section A - 24 Hr Update-Section A only Date of Service: 01/13/24 Section B - Complete if H&P > 30 days Chief Complaint: Family history of malignant neoplasm of digestive Details of Present Illness: Elevated cholesterol Hx of gastroesophageal reflux (GERD) Surgical History History of esophagogastroduodenoscopy (EGD) Hx of colonoscopy History of back surgery Present Medications: see Short Stay Collaborative assessment Allergies: Allergies Allergy/AdvReac Type Severity Reaction Status Date / Time No Known Allergies Allergy Mild N/A Verified 08/05/23 09:16 Review of Systems Review of Systems Comment: 10 point ROS negative Exam Exam Comment: Gen appear: No acute distress HEENT: no icterus Chest: No overt resp distress Abd: soft, nontender, nondistended Psych: Stable affect, answering questions appropriately Neuro: A/Ox3 noted to move all extremities spontaneously Ext: no peripheral edema Plan Diagnosis/Plan: Unchanged I have reviewed the history and physical and performed a pertinent physical examination on my patient. No changes have occurred unless specified. Time Spent With Patient Time: Total time managing care of this patient today ____ minutes.
[2024-01-13 07:20] VITALS: BMI 27.6
--- NOTE | 2024-01-13 07:25 | P.CONAN_ITS ---
Documented by User: Marcella Astorga NP 01/12/24 09:29 HPI - Anesthesia Eval Consult details Narrative: 58yo M for Colonoscopy PMFSH Active Problems Active Problems: All Active Problems Family history of colon cancer requiring screening colonoscopy (Acute) Encounter for screening colonoscopy for [id number] patient (Acute) Open fracture of middle phalanx of left index finger (Acute) Open fracture of proximal phalanx of left index finger (Acute) Laceration of thumb, left, complicated (Acute) Laceration of left index finger (Acute) COVID-19 (Acute) Stiffness of finger joint of left hand (Acute) Past Medical History Medical History Elevated cholesterol Hx of gastroesophageal reflux (GERD) Family History Family history of problems with anesthesia: No Surgical History Surgical History History of esophagogastroduodenoscopy (EGD) Hx of colonoscopy History of back surgery History of Problems with Anesthesia: No Social History Social History (Updated 08/05/23 @ 09:58 by Debbi Knutson PA-C) Household Members: Spouse Household Members Other:: 7 kids Are you a primary critical care clinical nurse specialist to a significant other at home: No Do you presently have visiting nurse or other home services: No Alcohol intake: never Patient Tobacco Use Status: Never used Tobacco Use of substances other than those prescribed or required for medical reasons: No Have you been hit, kicked, punched, or otherwise hurt by someone within the past year? 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 Meds Allergies Allergy/AdvReac Type Severity Reaction Status Date / Time No Known Allergies Allergy Mild N/A Verified 01/13/24 07:19 Home Medications ?Medication ?Instructions ?Recorded ?Confirmed ?Last Taken ?Type cholecalciferol (vitamin D3) 25 1 cap PO DAILY 01/31/22 11/05/24 Unknown History mcg (1,000 unit) capsule Assessment and Plan Assessment Anesthesia Assessment: Chart Reviewed Final Anesthetic Review Family History of Problems with Anesthesia: No History of Problems with Anesthesia: No Documented by User: Dorothy Hogue DO 01/13/24 08:09 HPI - Anesthesia Eval Consult details Narrative: 58 yo M for Colonoscopy [facility] Past Medical History Medical History Elevated cholesterol Hx of gastroesophageal reflux (GERD) Family History Family history of problems with anesthesia: No Surgical History Surgical History History of esophagogastroduodenoscopy (EGD) Hx of colonoscopy History of back surgery History of Problems with Anesthesia: No Social History Social History (Updated 08/05/23 @ 09:58 by Debbi Knutson PA-C) Household Members: Spouse Household Members Other:: 7 kids Are you a primary critical care clinical nurse specialist to a significant other at home: No Do you presently have visiting nurse or other home services: No Alcohol intake: never Patient Tobacco Use Status: Never used Tobacco Use of substances other than those prescribed or required for medical reasons: No Have you been hit, kicked, punched, or otherwise hurt by someone within the past year? 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 Meds Allergies Allergy/AdvReac Type Severity Reaction Status Date / Time No Known Allergies Allergy Mild N/A Verified 01/13/24 07:19 Home Medications ?Medication ?Instructions ?Recorded ?Confirmed ?Last Taken ?Type cholecalciferol (vitamin D3) 25 1 cap PO DAILY 04/09/21 01/13/24 Unknown History mcg (1,000 unit) capsule Exam Exam Date and Time: 01/13/24 0725 Height,Weight and Vital Signs: Height 5 ft 4 in Weight 72.847 kg Vital Signs Temperature 98.4 F 01/13/24 07:48 Pulse Rate 90 01/13/24 07:48 Respiratory Rate 16 01/13/24 07:48 Blood Pressure 131/80 01/13/24 07:48 Pulse Oximetry 97 01/13/24 07:48 Oxygen Delivery Method Room Air 01/13/24 07:48 Temperature 98.4 F 01/13/24 07:48 Pulse Rate 90 01/13/24 07:48 Respiratory Rate 16 01/13/24 07:48 Blood Pressure 131/80 01/13/24 07:48 Pulse Oximetry 97 01/13/24 07:48 Oxygen Delivery Method Room Air 01/13/24 07:48 Airway Mallampati Class: II TM Dist: >3cm Neck ROM: Full Loose/Missing/Broken Teeth: No (patient denies any loose or broken teeth) Heart: S1S2 Lungs: CTAB Assessment and Plan Assessment Anesthesia Assessment: Anesthesia Plan Discussed and Chart Reviewed Final Anesthetic Review Family History of Problems with Anesthesia: No History of Problems with Anesthesia: No NPO: Yes ASA Class: II Final Preanesthetic Review: No Changes in Pt Med Stat, Meds/Allgs Chart Reviewed, Consent Obtained/Reviewed (helium arc welder at bedside for translation) and Anes Risks/Benef Reviewed Patient Risk: Low Procedure Risk: Low Anesthetic Plan Anesthetic Plan: MAC:, Agree w/ Assess. and Plan and Other Disposition: Standard PACU
[2024-01-13 07:48] VITALS: BP 131/80; PULSE 90; RESP 16; TEMP 36.9; O2SAT 97
[2024-01-13] MEDS: Lactated Ringers 1,000 ML 100 ML IVCONT (07:57)
--- NOTE | 2024-01-13 08:48 | P.OPN-COLO_ITS ---
Colonoscopy Operative Note Operative Note Date of Service: 01/13/24 Narrative: Procedure: Colonoscopy Indication: Family history of colon cancer Endoscopist: Rocio Flores MD Anesthesia Provider: Nohemi Quintero CRNA Anesthesia type: MAC Instrument: Olympus [id number]-[id number] Consent: Indication, risks vs benefits, and alternatives were discussed with the patient who gave written informed consent to proceed. An director of the biophysics facility was utilized to assist with the consent. Monitoring: EKG, pulse, pulse oximetry and blood pressure were monitored throughout the procedure. Please see anesthesia flowsheet. Procedure: The patient was brought to the procedure room and placed in the left lateral decubitus position. IV medications were administered by the anesthesia provider in attendance. A digital rectal exam was performed which was normal. A distal attachment cap was affixed to the tip of the colonoscope which was then inserted through the anus and advanced through the colon to the cecum at 75 cm. Appendiceal orifice and ileocecal valve were identified. Mucosa was carefully examined under high definition white light as the instrument was slowly withdrawn in a retrograde panoramic fashion. Retroflexion was performed in ascending colon and rectum. The procedure was not difficult. There were no immediate obvious complications. The quality of the prep was BBPS: 2+2+3 = adequate Withdrawal time 15 minutes. Limitations: No limitations. Findings: Mucosa: Normal to cecum and terminal ileum. Protruding lesions: * Medium internal hemorrhoids without stigmata of recent bleeding. Impression: 1. Normal colon mucosa 2. Internal hemorrhoids Recommendations: - Repeat colonoscopy in 10 years (regular screening intervals as no first degree relatives with CRC or advanced adenoma)
[2024-01-13 08:50] VITALS: BP 101/57; PULSE 81; RESP 16; TEMP 36.1; O2SAT 97
[2024-01-13 09:05] VITALS: BP 109/66; PULSE 77; RESP 16; O2SAT 97
[2024-01-13 09:20] VITALS: BP 117/49; PULSE 74; RESP 16; TEMP 36.1; O2SAT 99
== END 2024-01-13 09:49 | disposition home or self-care (01) ==
PROVIDERS: PCP Internal Medicine; Visit Provider Internal Medicine
PROC: 0DJD8ZZ Inspection of Lower Intestinal Tract, Via Natural or Artificial Opening Endoscopic (ICD-10-PCS; CPT 45378; principal; 2024-01-13 08:20)
DX: Z12.11 Encounter for screening for malignant neoplasm of colon (principal); K64.8 Other hemorrhoids; E78.5 Hyperlipidemia, unspecified; K21.9 Gastro-esophageal reflux disease without esophagitis; Z79.899 Other long term (current) drug therapy
CPT/HCPCS: G0121; J2003; J2704

== ENCOUNTER → 2024-01-13 06:17 | Outpatient (BNV) | payer OTHER, SELFPAY | PROVIDERS: PCP Internal Medicine; Visit Provider Internal Medicine | DX: Z12.11 Encounter for screening for malignant neoplasm of colon (principal); Z80.0 Family history of malignant neoplasm of digestive organs; K64.8 Other hemorrhoids | CPT/HCPCS: G0105 ==

== ENCOUNTER 2024-06-08 08:54 | Outpatient (REF) | payer OTHER, SELFPAY ==
--- OUTSIDE RECORDS SUMMARY | 2024-06-08 09:30 | XMS_ITS | Clinical Summary ---
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 10 tablet 06/18/19 24 Active atorvastatin (Lipitor) 40 MG tabletIndicati ons:Dyslipidem ia Take 1 tablet (40 mg) by mouth Once per day. 30 tablet 11 12/26/19 24 025 Active Additional Information Patient not taking.Reported on 05/24/2024 Blood Pressure Monitoring (Blood Pressure Cuff) miscIndication s:Elevated blood pressure reading 1 each Once daily. 1 each 05/25/19 25 Active Blood Pressure Monitoring (Blood Pressure Cuff) miscIndication s:Elevated blood pressure reading 1 each Once daily. 1 each 05/25/19 25 025 Discontinued Active Problems Problem Noted Date Diagnosed Date Elevated blood pressure reading 05/24/2024 Assessment & Plan (05/24/2024 2:05 PM EDT): I advised low-sodium diet and weight reduction I will prescribe for patient a blood pressure monitor I asked him to monitor blood pressure at home and if blood pressure is persistently above 140/90 to report back to me Bilateral carpal tunnel syndrome 12/26/2023 Assessment & Plan (12/26/2023 10:55 AM EDT): Bilateral wrist brace will be prescribed Chronic bilateral low back pain with bilateral s ciatica 06/18/2023 Assessment & Plan (06/18/2023 1:51 PM EDT): Apply heat on affected area Short course of ibuprofen 800mg Q 8hrs with full stomach Short curse of flexeril, patient is aware of side effects somnolence, I advise not to drive while he is taking this medication XRAY ordered I will refer him to pain management Chronic pain of left knee 06/18/2023 Assessment & Plan (06/18/2023 1:49 PM EDT): Acetaminophen PRN Encounter for preventive health examination 06/08 Assessment & Plan (06/18/2023 1:52 PM EDT): See HPI Colon cancer screening 06/18/2023 Tendinosis of right shoulder 05/28/2018 Dyslipidemia 04/24/2018 Assessment & Plan (05/24/2024 2:05 PM EDT): Counseling about healthy diet and exercise Blood work ordered patient will be contacted with results Assessment & Plan (12/26/2023 10:54 AM EDT): I advise to avoid migraine triggers like red wine, chocolate, cheese, strong perfumes I will start him on atorvastatin 40mg daily. Ill recheck labs on next appointment Encounters Date Type Department Care Team Description 05/24/2024 11:00 AM EDT Office Visit [facility] [address] [place] [phone] Vernell Odonnell MD Elevated blood pressure reading (Primary Dx); Dyslipidemia 05/24/2024 Travel 05/14/2024 Patient Outreach [address] [phone] Vernell Odonnell MD Pre-visit Planning ((Unable to reach for PVP screening, LVM)) 03/15/2024 Patient Outreach [facility] [address] [place] [phone] Vernell Odonnell MD Pre-visit Planning ([facility] screening completed on 05/14/2023) from Last 3 Months Immunizations Name Administration Dates Next Due Hep B, adult 08/24/2008 Influenza injectable quadriv alent preservative free 12/14/2020,11/23/2015,11/28/2014 Influenza, IIV3, injectable 01/03/2014, 3 TD (adult), 2 Lf tetanus tox oid, preservative free, adsorbed 03/10/2002 Td (adult), 5 Lf tetanus tox oid, preservative free, adsorbed 08/09/2015 Tdap 09/05/2021,07/02/2012 Social History Tobacco Use Types Packs/Day Years Used Date Smoking Tobacco: Never Passive Smoke Exposure: Never Smokeless Tobacco: Never Tobacco Cessation:Counseling Given: Not Answered Alcohol Use Standard Drinks/Week Comments Never 0 (1 standard drink = 0.6 oz pur e alcohol) Depression Answer Date Recorded Patient Health Questionnaire-9 Score 3 06/18/2023 Patient Health Questionnaire-9 Score 3 06/18/2023 Last PHQ-9: Questionnaire Data Not on file 0 06/18/2023 Housing Stability Answer Date Recorded What is your housing situation today? I have ghanshyam holman 05/14/[address] you li ve. Do you have problems with any of the following? None of the above 05/14/2023 Food Insecurity Answer Date Recorded Within the past 12 months, y ou worried that your food would run out before you got money to buy more: Never True 05/14/2023 Within the past 12 months,th e food you bought just didn't last and you didn't have enough money to get more: Never True 08/2023 Transportation Answer Date Recorded In the past 12 months, has l ack of transportation kept you from medical appts, meetings, work or from getting things needed for daily living? No 05/14/2023 Utilities Answer Date Recorded In the past 12 months, has t he electric, gas, oil or water company threatened to shut off services in your home? No 05/14/2023 Depression Answer Date Recorded Patient Health Questionnaire-2 Score 2 06/18/2023 Sex and Gender Information Value Date Recorded Sex Assigned at Male 01/07/2022 10:14 AM EDT Legal Sex Male 10:14 AM EDT Gender Identity Male 05/23/2023 12:12 AM EDT Sexual Orientation Straight 01/07/2022 10 :14 AM EDT Last Filed Vital Signs Vital Sign Reading Time Taken Comments Blood Pressure 144/85 05/24/2024 2:03 PM EDT Pulse 83 05/24/2024 10:53 AM EDT Temperature 35.8 ??C (96.4 ??F) 05/24/2024 10:53 AM E DT Respiratory Rate 12 05/24/2024 10:53 AM EDT Oxygen Saturation 99% 12/26/2023 9:21 AM EDT Inhaled Oxygen Concentration - - Weight 79 kg (174 lb 4 oz) 05/24/2024 10:53 AM E DT Height 162.6 cm (5' 4 ) 05/24/2024 10:53 AM EDT Body Mass Index 29.91 05/24/2024 10:53 AM EDT Plan of Treatment Health Maintenance Due Date Last Done Comments CT Colonography 1965 FIT DNA/Cologuard 1965 FIT 1965 FOBT 1965 Sigmoidoscopy 1965 Alcohol/Substance Use Screening 1977 Hepatitis B Vaccines (2 of 3 - 19+ 3-dose series) 09/21/2008 08/24/2008 Pneumococcal Vaccine: 50+ Years (1 of 1 - PCV) 08/29/2015 Zoster Vaccines (1 of 2) 08/29/2015 Colonoscopy 04/15/2023 04/15/2016 Colorectal Cancer Screening 04/15/2023 COVID-19 Vaccine (1 - season) 2023 Influenza Vaccine (#1) 2023 , 11/23/2015, 11/28/2014, Additional history exists SDOH Screening 05/13/2024 05/14/2023 Depression Screening 06/17/2024 06/18/2023, 06/18/19 24 Diabetes: Hemoglobin A1C 06/19/2024 06/20/2023, 10/0 10/2020 Tobacco Screening 05/24/2025 05/24/2024 Lipid Panel 06/19/2028 06/20/2023, 12/15/2020 DTaP/Tdap/Td Vaccines (4 - Td or Tdap) 09/06/2031 09/05/2021, 08/09/2015, 07/02/2012, Additional history exists RSV Patients and Patients Aged 60 years or older (1 - 1-dose 75+ series) 2040 HIV Screening Completed 06/20/2023, 06/01/2021 Hepatitis C Screening Completed 06/20/2023, 022 HIB Vaccines Aged Out No longer eligi ble based on patient's age to complete this topic HPV Vaccines Aged Out No longer eligi ble based on patient's age to complete this topic Hepatitis A Vaccines Aged Out No long er eligible based on patient's age to complete this topic IPV Vaccines Aged Out No longer eligi ble based on patient's age to complete this topic Meningococcal Vaccine Aged Out No jonh dom eligible based on patient's age to complete this topic RSV under 20 months Aged Out No longe r eligible based on patient's age to complete this topic Rotavirus Vaccines Aged Out No longer eligible based on patient's age to complete this topic Procedures Procedure Name Priority Date/Time Associated Diagnosis Comments HEPATITIS C AB W/REFL TO HCV RNA, QN, PCR Routine 06/20/2023 8:09 AM EDT Encounter for preventive health examination HIV 1/2 ANTIGEN/ANTIBODY, FOURTH GENERATION W/RFL Routine 06/20/2023 8:09 AM EDT Encounter for preventive health examination HEMOGLOBIN A1C Routine 06/20/2023 8:09 AM EDT Encounter for preventive health examination LIPID PANEL, STANDARD Routine 06/20/2023 8:09 AM EDT Encounter for preventive health examination HM COLONOSCOPY Routine 04/15/2016 from Last 3 Months or Most Recently Relevant to Health Maintenance Results * Hepatitis C Antibody with Reflex to HCV, RNA, Quantitative, Real-Time PCR (06/20/2023 8:09 AM EDT) Hepatitis C Antibody Nonreactive Nonreactive [facility] Comment:Antibodies to HCV no t detected; does not exclude early acuteHCV infection. Blood Venous blood specimen / Unknown 06/20/2023 8:09 AM EDT 06/20/2023 11:29 AM EDT Vernell Luque MD LAB BLOOD ORDERABLES Final Result Performing Organization Address [facility] Co de Phone Number [facility] [address] [place] [phone] * HIV-1/2 Antigen and Antibodies, Fourth Generation, with Reflexes (06/20/2023 8:09 AM EDT) HIV AB/AG Nonreactive Nonreactive [facility] Comment:HIV-1 p24 Ag and/or HIV-1/HIV-2 Ab not detected.A test result that is nonreactive does not exclude thepossibility of exposure to or infection with HIV-1 and/orHIV-2. Nonreactive results in this assay for individualswith prior exposure to HIV-1 and/or HIV-2 may be due toantigen and antibody levels that are below the limit ofdetection of this assay.The [employer] HIV Ag/Ab Combo assay result andsupplemental assay results should be interpreted inconjunction with the patient's clinical presentation,history and other laboratory results. If the results areinconsistent with clinical evidence, additional testing issuggested to confirm the result. Blood Venous blood specimen / Unknown 06/20/2023 8:09 AM EDT 06/20/2023 11:29 AM EDT us Vernell Luque MD LAB BLOOD ORDERABLES Final Result Performing Organization Address [facility]/ZIP Co de Phone Number [facility] [address] [place] [address] [phone] * Hemoglobin A1c (06/20/2023 8:09 AM EDT) Hemoglobin A1c 5.8 <6.0 % [facility] Comment:Hemoglobin A1C Refer ence Range Adults: 4.8 - 6.0 % Non diabetic: < 6.0 % Goal: < 7.0 %Additional Action Suggested: > 8.0 %Note: Hemoglobin A1c results are invalid for patients with abnormal amounts of HbF. Blood transfusions may impact the HbA1c concentration in the patient sample. Estimated Average Glucose 120 mg/dL [facility] Comment:eAG = Estimated ave rage glucose which is %A1C expressed asaverage glucose, using the formula of the [id number] Glucose study (ADAG), Diabetes Care, Vol.31,#8,Oct. 2007 Blood Venous blood specimen / Unknown 06/20/2023 8:09 AM EDT 06/20/2023 11:29 AM EDT us Vernell Luque MD LAB BLOOD ORDERABLES Final Result [facility] [address] [place] [phone] * (ABNORMAL) Lipid Panel, Standard (06/20/2023 8:09 AM EDT) Triglycerides 160(H) <150 mg/dL [facility] Comment:Desirable Triglyceri de: less than 150 mg/dLBorderline High Triglyceride 150-199 mg/dLHigh Triglyceride: 200-499 mg/dLVery High Triglyceride: greater than or equal to 5OO mg/dL Cholesterol 250(H) <200 mg/dL [facility] Comment:Desirable Cholestero l: less than 200 mg/dLBorderline High Cholesterol: 200-239 mg/dLHigh Cholesterol: greater than 239 mg/dL LDL Cholesterol Calculated 176(H) <100 mg/dL [facility] Comment:Desirable LDL: less than 100 mg/dLNear Optimal/Above Optimal LDL: 110- 129 mg/dLBorderline High LDL: 130-159 mg/dLHigh LDL: 160-189 mg/dLVery High LDL: greater than or equal to 190 mg/dL HDL Cholesterol 42 >40 mg/dL [facility] Comment:Desirable HDL: great er than 40 mg/dL Note: This HDL assay may give artificially low results in patients with liver disease. Blood Venous blood specimen / Unknown 06/20/2023 8:09 AM EDT 06/20/2023 11:29 AM EDT us Vernell Luque MD LAB BLOOD ORDERABLES Final Result [facility] [address] [place] [phone] * Hm Colonoscopy (04/15/2016) us Historical Provider HEALTH MAINTENANCE Final Result from Last 3 Months or Most Recently Relevant to Health Maintenance Insurance [facility] Care Teams Friction Saw Operator Relationship Specialty Start Date End Date Vernell Odonnell MD [address] [place] [address], [place] [phone] PCP - General Family Medicine 11/19/17
--- OUTSIDE RECORDS SUMMARY | 2024-06-08 09:30 | XMS_ITS | Encounter Summary ---
Author Organization [employer] Address [address] [facility] [address] [place] [address] Care Team Providers Care Pain Management Nurse Name Role Phone Vernell Odonnell MD Primary Care Provide r Encounter Details Date Type Department Care Team (Late st Contact Info) Description 11/14/2022 Orders Only [facility] [address] [place] [address] Provider, MD Anita Social History Tobacco Use Types Packs/Day Years Used Date Smoking Tobacco: Never Assessed Sex and Gender Information Value Date Recorded Sex Assigned at Male 01/07/2022 10:14 AM EDT Legal Sex Male 10:14 AM EDT Gender Identity Male 05/23/2023 12:12 AM EDT Sexual Orientation Straight 01/07/2022 10 :14 AM EDT documented as of this encounter Plan of Treatment Not on file documented as of this encounter Procedures Procedure Name Priority Date/Time Associated Diagnosis Comments SARS COV2/INFLUENZA A/B AND RSV RNA QL NAAT Routine 02/23/2023 10:27 AM EST CBC WITH AUTO DIFFERENTIAL Routine 02/23/2023 10:27 AM EST URINALYSIS WITH REFLEX MICROSCOPIC Routine 02/23/2023 10:27 AM EST LIPASE Routine 02/23/2023 10:27 AM EST COMPREHENSIVE METABOLIC PANEL Routine 02/23/2023 10:27 AM EST HM COLONOSCOPY Routine 04/15/2016 documented in this encounter Results * Lipase (02/23/2023 10:27 AM EST) Lipase 19 8 - 78 U/L [facility] 02/23/2023 10:2 7 AM EST 02/23/2023 10:30 AM EST Vernell Luque MD LAB BLOOD ORDERABLES Final Result Performing Organization Address [facility] Co de Phone Number [facility] [address] [place] [phone] * (ABNORMAL) SARS-CoV-2 RNA, Influenza A/B, and RSV RNA, Ql NAAT (02/23/2023 10:27 AM EST) Influenza A PCR POSITIVE(A) Negative [facility] Influenza B PCR NEGATIVE Negative [facility] Resp Syncy Virus RNA Qual PCR NEGATIVE Negative [facility] SARS COV2 PCR NEGATIVE Negative [facility] Comment:All test results mus t be correlated with clinical findings.Negative results do not preclude SARS-CoV2, influenza Avirus, influenza B virus and/or RSV infectionand should not be used as the sole basis for treatment orother patient management decisions. Negative results must becombined with clinical observations, patient history, andepidemiological information.This test has not been evaluated for monitoring treatment ofinfection.This test has been authorized by the FDA under an EmergencyUse Authorization (EUA) for use by authorized laboratories.Testing performed on the [employer] GeneXpert utilizingreal-time RT-PCR.All SARS CoV2 and positive influenza A/B results arereported to [facility]. 02/23/2023 10:2 7 AM EST 02/23/2023 10:30 AM EST us Vernell Luque MD LAB MICROBIOLOGY - GE NERAL ORDERABLES Final Result Performing Organization Address [facility]/ZIP Co de Phone Number [facility] [address] [place] [phone] * (ABNORMAL) Comprehensive Metabolic Panel (02/23/2023 10:27 AM EST) Sodium 139 135 - 145 mmol/L [facility] Potassium 4.5 3.3 - 5.1 mmol/L [facility] Chloride 101 96 - 108 mmol/L [facility] Carbon Dioxide 30(H) 22 - 29 mmol/L [facility] Anion Gap 13 12 - 20 [facility] Urea Nitrogen (BUN) 11 9 - 16 mg/dL [facility] Creatinine, Serum 1.34 0.5 - 1.4 mg/dL [facility] Creatinine Clr Calc Pharmacy 56.2 [facility] Comment:eGFR (calculated fro m the MDRD study equation) and eCrCl(calculated from the Cockcroft-Gault equation) are based ondifferent parameters and may not yield comparable results.If eCrCl result is absurd, please check patient'sheight/weight. Estimated Glomerular Filt Rate 55 [facility] Comment:NOTE: For -Am erican individuals, multiply the result by 1.210.Chronic Kidney Disease: Estimated GFR < 60 mL/min/1.08y8Pduvpc Kidney Disease: Estimated GFR < 15 mL/min/1.73m2 Glucose 93 60 - 115 mg/dL [facility] Calcium 9.5 8.4 - 10.2 mg/dL [facility] Bilirubin, Total 0.4 0.0 - 1.0 mg/dL [facility] Aspartate Amino Transferase 28 5 - 37 U/L [facility] Alanine Aminotransferase 28 0 - 40 U/L [facility] Total Protein 8.0 6.5 - 8.0 g/dL [facility] Albumin Level 4.4 3.5 - 5.0 g/dL [facility] Alkaline Phosphatase 90 39 - 117 U/L [facility] 02/23/2023 10:2 7 AM EST 02/23/2023 10:30 AM EST Vernell Luque MD LAB BLOOD ORDERABLES Final Result [facility] [address] [place], [place] [phone] * (ABNORMAL) CBC auto differential (02/23/2023 10:27 AM EST) White Blood Count 5.9 4.8 - 10.8 X10*3/uL [facility] Red Blood Count 5.71 4.60 - 5.80 X10*6/uL [facility] Hemoglobin 15.9 14.0 - 18.0 g/dl [facility] Hematocrit 48.8 42.0 - 52.0 % [facility] Mean Corpuscular Volume 85.5 80.0 - 98.0 fL [facility] Mean Corpuscular Hemoglobin 27.8 27.0 - 33.0 pg [facility] Mean Corpuscular HGB Conc 32.6 31.0 - 36.0 g/dl [facility] Red Cell Distribution Width 13.6 11.0 - 16.0 % [facility] Platelet Count 216 160 - 400 X10*3/uL [facility] Mean Platelet Volume 10.0 9.4 - 12.4 fL [facility] Neutrophils Percent Auto 52.6 45 - 73 % [facility] Imm Gran Pct Auto 0.3 0.0 - 0.4 % [facility] Lymphocytes Percent Auto 29.6 20 - 40 % [facility] Monocytes Percent Auto 16.2(H) 2 - 11 % [facility] Eosinophils Percent Auto 0.8 0 - 4 % [facility] Basophils Percent Auto 0.5 0 - 2 % [facility] NRBC Pct Auto 0.0 0.0 - 0.2 /100WBC [facility] Neutrophils Absolute Auto 3.1 2.0 - 8.3 x10*3/uL [facility] Imm Gran Abs Auto 0.02 0.00 - 0.03 X10*3/uL [facility] Lymphocytes Absolute Auto 1.8 1.2 - 4.9 X10*3/uL [facility] Monocytes Absolute Auto 1.0 0.1 - 1.2 X10*3/uL [facility] Eosinophils Absolute Auto 0.1 0.0 - 0.4 X10*3/uL [facility] Basophils Absolute Auto 0.0 0.0 - 0.2 X10*3/uL [facility] NRBC Abs Auto 0.000 0.0 - 0.012 X10*3/uL [facility] 02/23/2023 10:2 7 AM EST 02/23/2023 10:30 AM EST us Vernell Luque MD LAB BLOOD ORDERABLES Final Result Performing Organization Address [facility] Co de Phone Number [facility] [address] [place] [phone] * Urinalysis w/reflex microscopic (02/23/2023 10:27 AM EST) Color Urine Yellow [facility] Appearance Urine Clear [facility] PH 6.0 5.0 - 9.0 [facility] Glucose Urine UA Negative Negative mg/dL [facility] Urine Blood Negative Negative [facility] Specific [place] - Urine 1.025 1.005 - 1.025 [facility] Urine Protein Negative Neg-Trace mg/dL [facility] Urine Ketones Trace Negative mg/dL [facility] Nitrite Urine Negative Negative [facility] Leukocyte Esterase Urine Negative Negative [facility] 02/23/2023 10:2 7 AM EST 02/23/2023 10:31 AM EST Narrative [facility] - 02/23/2023 10:34 AM EST [id number], Clean Catch us Vernell Luque MD LAB URINE ORDERABLES Final Result Performing Organization Address [facility]/ZIP Co de Phone Number [facility] [address] [place] [phone] * Hm Colonoscopy (04/15/2016) us Historical Provider HEALTH MAINTENANCE Final Result documented in this encounter Visit Diagnoses Not on filedocumented in this encounter Care Teams Pain Management Nurse Relationship Specialty Start Date End Date Vernell Odonnell MD [address] [place] [phone] PCP - General Family Medicine 11/19/17 documented as of this encounter
[2024-06-08 11:22] LABS: MANUAL DIFF FLAG NO
[2024-06-08 11:34] LABS: Basophils Percent Auto 0.3 % (0-2); Eosinophils Absolute Auto 0.1 X10*3/uL (0.0-0.4); Eosinophils Percent Auto 1.4 % (0-4); Hematocrit 45.9 % (42.0-52.0); Hemoglobin 15.1 g/dl (14.0-18.0); Imm Gran Abs Auto 0.02 X10*3/uL (0.00-0.03); Imm Gran Pct Auto 0.3 % (0.0-0.4); Lymphocytes Absolute Auto 2.1 X10*3/uL (1.2-4.9); Lymphocytes Percent Auto 33.5 % (20-40); Mean Corpuscular HGB Conc 32.9 g/dl (31.0-36.0); Mean Corpuscular Hemoglobin 28.1 pg (27.0-33.0); Mean Corpuscular Volume 85.5 fL (80.0-98.0); Mean Platelet Volume 10.5 fL (9.4-12.4); Monocytes Absolute Auto 0.6 X10*3/uL (0.1-1.2); Monocytes Percent Auto 9.8 % (2-11); Neutrophils Absolute Auto 3.4 x10*3/uL (2.0-8.3); Neutrophils Percent Auto 54.7 % (45-73); Platelet Count 234 X10*3/uL (160-400); Red Blood Count 5.37 X10*6/uL (4.60-5.80); Red Cell Distribution Width 13.4 % (11.0-16.0); White Blood Count 6.2 X10*3/uL (4.8-10.8)
[2024-06-08 11:46] LABS: Estimated Average Glucose 120 mg/dL; Hemoglobin A1C 158.4388 umol/L; Hemoglobin A1c % 5.8 % (<6.0); Total Hemoglobin (HGBA1C) 4012.8562 umol/L
[2024-06-08 12:05] LABS: Alanine Aminotransferase 21 U/L (0-40); Albumin Level 4.1 g/dL (3.5-5.0); Alkaline Phosphatase 82 U/L (39-117); Anion Gap 7 (12-20); Aspartate Amino Transferase 22 U/L (5-37); Bilirubin Total 0.4 mg/dL (0.0-1.0); Blood Urea Nitrogen 10 mg/dL (9-16); Calcium 9.6 mg/dL (8.4-10.2); Carbon Dioxide 32 mmol/L (22-29); Chloride 105 mmol/L (96-108); Cholesterol 242 mg/dL (<200); Estimated Glomerular Filt Rate > 60; Glucose Random 91 mg/dL (60-115); HDL Cholesterol 34 mg/dL (>40); LDL Cholesterol Calculated 158 mg/dL (<100); Potassium 3.9 mmol/L (3.3-5.1); Sodium 140 mmol/L (135-145); TSH reflex Free T4 2.56 uIU/mL (0.32-4.0); Total Protein 7.1 g/dL (6.5-8.0); Triglycerides 250 mg/dL (<150); Vitamin D 25-OH Total 90.7 ng/mL (>30)
== END 2024-06-08 08:55 | disposition home or self-care (01) ==
LOC: HO.HHCL 08:54
PROVIDERS: Visit Provider Internal Medicine
DX: E78.5 Hyperlipidemia, unspecified (principal); Z13.1 Encounter for screening for diabetes mellitus
CPT/HCPCS: 36415; 80053; 80061; 82306; 83036; 84443; 85025

== ENCOUNTER 2024-11-01 09:39 | Outpatient (REF) | payer OTHER, SELFPAY ==
--- NOTE | ~2024-11-01 | XR_ITS ---
EXAMINATION: XR SHOULDER, RIGHT CLINICAL INFORMATION: right shoulder injury yesterday with superior shoulder pain COMPARISON: None available. TECHNIQUE: AP external rotation, Grashey, scapular Y, and axillary views of the right shoulder. FINDINGS: Normal bone mineralization. No fracture, dislocation, or suspicious bone lesion. Normal alignment. The glenohumeral joint is normal. The AC joint demonstrates mild superior surface spurring. There is a type II acromion. No undersurface spurring. The subacromial space is preserved. Remainder of the soft tissue and bony structures appear normal. XR/XR shoulder RT min 2V IMPRESSION: 1. No acute bony abnormalities of the right shoulder. 2. Mild osteoarthrosis of the AC joint. Electronically signed by: Deyvi Silva MD 11/01/2024 10:02 AM EDT
--- OUTSIDE RECORDS SUMMARY | 2024-11-01 10:29 | XMS_ITS | Encounter Summary ---
Author Organization [employer] Address [address] [place] [address] [place] [address] Care Team Providers Care Supply Chain Procurement Manager Name Role Phone Vernell Odonnell MD Primary Care Provide r Encounter Details Date Type Department Care Team (Late st Contact Info) Description 11/14/2022 Orders Only [facility] [address] [place] [address] [phone] ProviderAnita MD Social History Tobacco Use Types Packs/Day Years Used Date Smoking Tobacco: Never Assessed Sex and Gender Information Value Date Recorded Sex Assigned at Male 01/07/2022 10:14 AM EDT Legal Sex Male 10:14 AM EDT Gender Identity Male 05/23/2023 12:12 AM EDT Sexual Orientation Straight 01/07/2022 10 :14 AM EDT documented as of this encounter Plan of Treatment Upcoming Encounters Date Type Department Care Team (Late st Contact Info) Description 11/24/2024 9:00 AM EDT Office Visit [facility] [address] [place] [phone] Vernell Odonnell MD [address] [place] [address] documented as of this encounter Procedures Procedure [...] EST) Lipase 19 8 - 78 U/L [facility] 02/23/2023 10:2 7 AM EST 02/23/2023 10:30 AM EST us Vernell Luque MD LAB BLOOD ORDERABLES Final Result [facility] [address] [place] [address] [phone] * (ABNORMAL) SARS-CoV-2 RNA, Influenza A/B, and RSV RNA, Ql NAAT (02/23/2023 10:27 AM EST) Pathologist [facility] Influenza A PCR POSITIVE(A) Negative [facility] Influenza B PCR NEGATIVE Negative [facility] Resp Syncy Virus RNA Qual PCR NEGATIVE Negative [facility] SARS COV2 PCR NEGATIVE Negative [facility] Comment:All test results mus t [...] use by authorized laboratories.Testing performed on the [employer] GeneXpert utilizingreal-time RT-PCR.All SARS CoV2 and positive influenza A/B results arereported to [facility]. 02/23/2023 10:2 7 AM EST 02/23/2023 10:30 AM EST us Vernell Luque MD LAB MICROBIOLOGY - GE NERAL ORDERABLES Final Result [facility] [address] [place] [address] [phone] * (ABNORMAL) Comprehensive Metabolic Panel (02/23/2023 10:27 AM EST) Sodium 139 135 - 145 mmol/L [facility] Potassium 4.5 3.3 - 5.1 mmol/L [facility] Chloride 101 96 - 108 mmol/L [facility] Carbon Dioxide 30(H) 22 - 29 mmol/L [facility] Anion Gap 13 12 - 20 [facility] Urea Nitrogen (BUN) 11 9 - 16 mg/dL [facility] Creatinine, Serum 1.34 0.5 - 1.4 mg/dL [facility] Creatinine Clr Calc Pharmacy 56.2 [facility] Comment:eGFR (calculated fro m the MDRD study equation) and eCrCl(calculated from the Cockcroft-Gault equation) are based ondifferent parameters and may not yield comparable results.If eCrCl result is absurd, please check patient'sheight/weight. Estimated Glomerular Filt Rate 55 [facility] Comment:NOTE: For -Am erican individuals, multiply the result by 1.210.Chronic Kidney Disease: Estimated GFR < 60 mL/min/1.35w1Daiyke Kidney Disease: Estimated GFR < 15 mL/min/1.73m2 Glucose 93 60 - 115 mg/dL [facility] Calcium 9.5 8.4 - 10.2 mg/dL [facility] Bilirubin, Total 0.4 0.0 - 1.0 mg/dL [facility] Aspartate Amino Transferase 28 5 - 37 U/L [facility] Alanine Aminotransferase 28 0 - 40 U/L [facility] Total Protein 8.0 6.5 - 8.0 g/dL [facility] Albumin Level 4.4 3.5 - 5.0 g/dL [facility] Alkaline Phosphatase 90 39 - 117 U/L [facility] 02/23/2023 10:2 7 AM EST 02/23/2023 10:30 AM EST us Vernell Luque MD LAB BLOOD ORDERABLES Final Result [facility] [address] [place] [address] [phone] * (ABNORMAL) CBC auto differential (02/23/2023 10:27 AM EST) White Blood Count 5.9 4.8 - 10.8 X10*3/uL [facility] Red Blood Count 5.71 4.60 - 5.80 X10*6/uL [facility] Hemoglobin 15.9 14.0 - 18.0 g/dl [facility] Hematocrit 48.8 42.0 - 52.0 % [facility] Mean Corpuscular Volume 85.5 80.0 - 98.0 fL [facility] Mean Corpuscular Hemoglobin 27.8 27.0 - 33.0 pg [facility] Mean Corpuscular HGB Conc 32.6 31.0 - 36.0 g/dl [facility] Red Cell Distribution Width 13.6 11.0 - 16.0 % [facility] Platelet Count 216 160 - 400 X10*3/uL [facility] Mean Platelet Volume 10.0 9.4 - 12.4 fL [facility] Neutrophils Percent Auto 52.6 45 - 73 % [facility] Imm Gran Pct Auto 0.3 0.0 - 0.4 % [facility] Lymphocytes Percent Auto 29.6 20 - 40 % [facility] Monocytes Percent Auto 16.2(H) 2 - 11 % [facility] Eosinophils Percent Auto 0.8 0 - 4 % [facility] Basophils Percent Auto 0.5 0 - 2 % [facility] NRBC Pct Auto 0.0 0.0 - 0.2 /100WBC [facility] Neutrophils Absolute Auto 3.1 2.0 - 8.3 x10*3/uL [facility] Imm Gran Abs Auto 0.02 0.00 - 0.03 X10*3/uL [facility] Lymphocytes Absolute Auto 1.8 1.2 - 4.9 X10*3/uL [facility] Monocytes Absolute Auto 1.0 0.1 - 1.2 X10*3/uL [facility] Eosinophils Absolute Auto 0.1 0.0 - 0.4 X10*3/uL [facility] Basophils Absolute Auto 0.0 0.0 - 0.2 X10*3/uL [facility] NRBC Abs Auto 0.000 0.0 - 0.012 X10*3/uL [facility] 02/23/2023 10:2 7 AM EST 02/23/2023 10:30 AM EST Vernell Luque MD LAB BLOOD ORDERABLES Final Result [facility] [address] [place] [address] [phone] * Urinalysis w/reflex microscopic (02/23/2023 10:27 AM EST) Color Urine Yellow [facility] Appearance Urine Clear [facility] PH 6.0 5.0 - 9.0 [facility] Glucose Urine UA Negative Negative mg/dL [facility] Urine Blood Negative Negative [facility] Specific [place] - Urine 1.025 1.005 - 1.025 [facility] Urine Protein Negative Neg-Trace mg/dL [facility] Urine Ketones Trace Negative mg/dL [facility] Nitrite Urine Negative Negative [facility] Leukocyte Esterase Urine Negative Negative [facility] 02/23/2023 10:2 7 AM EST 02/23/2023 10:31 AM EST Narrative [facility] - 02/23/2023 10:34 AM EST [id number], Clean Catch us Vernell Luque MD LAB URINE ORDERABLES Final Result [facility] [address] [place] [address] [phone] * Hm Colonoscopy (04/15/2016) us Historical Provider HEALTH MAINTENANCE Final Result documented in this encounter Visit Diagnoses Not on filedocumented in this encounter Care Teams Supply Chain Procurement Manager Relationship Specialty Start Date End Date Vernell Odonnell MD [address] [place] [phone] PCP - General Family Medicine 11/19/17 documented as of this encounter
== END 2024-11-01 09:40 | disposition home or self-care (01) ==
LOC: HO.HHCX 09:39
PROVIDERS: Visit Provider Emergency Medicine
DX: M25.511 Pain in right shoulder (principal); S49.91XD Unspecified injury of right shoulder and upper arm, subsequent encounter
CPT/HCPCS: 73030

== ENCOUNTER → 2024-11-01 09:39 | Outpatient (BNV) | payer OTHER, SELFPAY | PROVIDERS: Visit Provider Radiology Diagnostic Radiology | DX: S49.91XA Unspecified injury of right shoulder and upper arm, initial encounter (principal) | CPT/HCPCS: 73030 ==

== ENCOUNTER 2024-11-24 09:34 | Outpatient (REF) | payer OTHER, SELFPAY ==
--- OUTSIDE RECORDS SUMMARY | 2024-11-24 09:00 | XMS_ITS | Encounter Summary ---
Author Organization [employer] Address [address] [place] [phone] Care Team Providers Care Commercial Or Institutional Cleaner Name Role Phone Vernell Odonnell MD Primary Care Provide r Reason for Referral * Consultation (Routine) - Authorized Specialty Diagnoses / Procedures Referred By Contac t Referred To Contact Urology Diagnoses Weak urine stream Vernell Odonnell MD [address] [place] [phone] Phone: tel: fax: [facility] [address] [place] [address] Drive [address] [place], [place] Phone: tel: fax: Referral ID Status Reason Start Date Expiration Date Visits Requested Visits Authorized [id number] Authorized Specialty Services Required 11/24/2024 11/24/2025 1 1 Encounter Details Date Type Department Care Team (Late st Contact Info) Description 11/24/2024 9:00 AM EDT Office Visit [facility] [address] [place] [address] [phone] Vernell Odonnell MD [address] [place] [address] [phone] Chronic right shoulder pain (Primary Dx); Dietary counseling; Exercise counseling; Weak urine stream Social History Tobacco Use Types Packs/Day Years Used Date Smoking Tobacco: Never Passive Smoke Exposure: Never Smokeless Tobacco: Never Alcohol Use Standard Drinks/Week Comments Never 0 (1 standard drink = 0.6 oz pur e alcohol) Depression Answer Date Recorded Patient Health Questionnaire-9 Score 3 06/18/2023 Patient Health Questionnaire-9 Score 3 06/18/2023 Last PHQ-9: Questionnaire Data Not on file 0 06/18/2023 Housing Stability Answer Date Recorded What is your housing situation today? I have ghanshyam holman 11/24/[address] you li ve. Do you have problems with any of the following? Not on file 11/24/2024 Food Insecurity Answer Date Recorded Within the past 12 months, y ou worried that your food would run out before you got money to buy more: Never True 11/24/2024 Within the past 12 months,th e food you bought just didn't last and you didn't have enough money to get more: Never True Transportation Answer Date Recorded In the past 12 months, has l ack of transportation kept you from medical appts, meetings, work or from getting things needed for daily living? No 11/24/2024 Utilities Answer Date Recorded In the past 12 months, has t he electric, gas, oil or water company threatened to shut off services in your home? No 11/24/2024 Depression Answer Date Recorded Patient Health Questionnaire-2 Score 2 06/18/2023 Internet Access Answer Date Recorded Internet Access Q1 Yes 11/24/2024 Internet Access Q2 Not on file 11/24/2024 Sex and Gender Information Value Date Recorded Sex Assigned at Male 01/07/2022 10:14 AM EDT Legal Sex Male 10:14 AM EDT Gender Identity Male 05/23/2023 12:12 AM EDT Sexual Orientation Straight 01/07/2022 10 :14 AM EDT documented as of this encounter Last Filed Vital Signs Vital Sign Reading Time Taken Comments Blood Pressure 130/82 11/24/2024 9:04 AM EDT Pulse 78 11/24/2024 9:04 AM EDT Temperature 36.2 C (97.1 F) 11/24/2024 9:04 AM EDT Respiratory Rate 20 11/24/2024 9:04 AM EDT Oxygen Saturation 98% 11/24/2024 9:04 AM EDT Inhaled Oxygen Concentration - - Weight 77.8 kg (171 lb 9.6 oz) 11/24/2024 9:04 A M EDT Height 162.6 cm (5' 4 ) 11/24/2024 9:04 AM EDT Body Mass Index 29.46 11/24/2024 9:04 AM EDT documented in this encounter Functional Status * Over the last 2 weeks, how often have you been bothered by any of the following problems? Question Answer Date of Assessment Author Feeling nervous, anxious, or on edge 1 11/08 9:05 AM EDT Azra Dunlap MA Not being able to stop or co ntrol worrying 0 11/24/2024 9:05 AM EDT Azra Dunlap MA Worrying too much about diff erent things 0 11/24/2024 9:05 AM EDT Azra Dunlap MA Trouble relaxing 0 11/24/2024 9:05 AM EDT Azra Alcantar MA Being so restless that it is hard to sit still 0 11/24/2024 9:05 AM EDT Azra Dunlap MA Becoming easily annoyed or irritable 0 11/08 9:05 AM EDT Azra Dunlap MA Feeling afraid as if somethi ng awful might happen 0 11/24/2024 9:05 AM EDT Azra Dunlap MA LATRICIA-7 Total Score 1 11/24/2024 9:05 AM EDT Azra Dunlap MA documented as of this encounter Progress Notes * Vernell Luque MD - 11/24/2024 9:00 AM EDT SUBJECTIVE: Dre Shields is a 59 y.o. year old male who presents for Chronic Disease Management . 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 Chronic pain of left knee Encounter for preventive health examination Colon cancer screening Bilateral carpal tunnel syndrome Elevated blood pressure reading Abdominal pain Contusion of rib on right side COVID-19 Dysuria Encounter for removal of sutures Family history of colon cancer requiring screening colonoscopy Influenza A Laceration of left index finger Laceration of thumb, left, complicated Open fracture of middle phalanx of left index finger Open fracture of proximal phalanx of left index finger Stiffness of finger joint of left hand Encounter for screening colonoscopy for [id number] patient Weak urine stream Chronic right shoulder pain Family History[2] Review of Systems Constitutional: Negative. HENT: Negative. Respiratory: Negative. Cardiovascular: Negative. Genitourinary: Positive for difficulty urinating and frequency. Negative for decreased urine volume, dysuria, enuresis, flank pain, genital sores, hematuria, penile discharge, penile pain, penile swelling, scrotal swelling, testicular pain and urgency. OBJECTIVE: Vitals: 11/24/24 0904 BP: 130/82 BP Location: Left arm Patient Position: Sitting BP Cuff Size: Adult Pulse: 78 Resp: 20 Temp: 97.1 ??F (36.2 ??C) TempSrc: Oral SpO2: 98% Weight: 171 lb 9.6 oz (77.8 kg) Height: 5' 4 (1.626 m) Physical Exam Constitutional: Appearance: Normal appearance. Cardiovascular: Rate and Rhythm: Normal rate and regular rhythm. Pulmonary: Effort: Pulmonary effort is normal. Breath sounds: Normal breath sounds. Abdominal: General: Abdomen is flat. Palpations: Abdomen is soft. Neurological: Mental Status: He is alert. Follow Up: Follow up in about 6 months (around 05/24/2025) for chronic conditions . 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 Chronic pain of left knee Encounter for preventive health examination Colon cancer screening Bilateral carpal tunnel syndrome Elevated blood pressure reading Abdominal pain Contusion of rib on right side COVID-19 Dysuria Encounter for removal of sutures Family history of colon cancer requiring screening colonoscopy Influenza A Laceration of left index finger Laceration of thumb, left, complicated Open fracture of middle phalanx of left index finger Open fracture of proximal phalanx of left index finger Stiffness of finger joint of left hand Encounter for screening colonoscopy for [id number] patient Weak urine stream Chronic right shoulder pain [2] No family history on file. [3] Current Outpatient Medications on File Prior to Visit Medication Sig Dispense Refill acetaminophen (Tylenol) 500 MG tablet Take 2 tablets (1,000 mg) by mouth every 6 (six) hours if needed for moderate pain or fever for up to 25 doses. 50 tablet 0 atorvastatin (Lipitor) 80 MG tablet Take 1 tablet (80 mg) by mouth Once per day. 30 tablet 11 Blood Pressure Monitoring (Blood Pressure Cuff) misc 1 each Once daily. 1 each 0 cyclobenzaprine (Flexeril) 10 MG tablet Take 1 tablet (10 mg) by mouth at bedtime for 10 days. 10 tablet 0 ibuprofen 400 MG tablet Take 1 tablet (400 mg) by mouth every 6 (six) hours if needed for moderate pain or fever for up to 30 doses. 30 tablet 0 tiZANidine (Zanaflex) 2 MG tablet Take 1 tablet (2 mg) by mouth every 8 (eight) hours if needed formuscle spasms for up to 10 days. 30 tablet 0 No current facility-administered medications on file prior to visit. documented in this encounter Miscellaneous Notes * Assessment & Plan Note - Vernell Luque MD - 11/24/2024 10:10 AM EDT Associated Problem(s): Chronic right shoulder pain Do not miss appointment with orthopedics documented in this encounter Plan of Treatment Scheduled Orders Name Type Priority Associated Diagnoses Orde r Schedule PSA, Total With Reflex to PSA, Free Lab Routine Weak urine stream Expected: 11/24/2024 (Approximate), Expires: 11/24/2025 Scheduled Referrals Name Type Priority Associated Diagnoses Orde r Schedule Referral to Urology Outpatient Referral Routine Weak urine stream Expected: 11/24/2024 (Approximate), Expires: 11/24/2025 documented as of this encounter Visit Diagnoses Diagnosis Chronic right shoulder pain- Primary Pain in joint, shoulder region Dietary counseling Dietary surveillance and counseling Exercise counseling Weak urine stream documented in this encounter Additional Health Concerns Assessment Noted Time PHQ-9 Depression Total Score: 3 06/18/19 24 9:16 AM EDT documented as of this encounter Care Teams Commercial Or Institutional Cleaner Relationship Specialty Start Date End Date Vernell Odonnell MD [address] [place] [address] PCP - General Family Medicine 11/19/17 documented as of this encounter
--- OUTSIDE RECORDS SUMMARY | 2024-11-24 11:21 | XMS_ITS | Clinical Summary ---
Author Organization [employer] Address [address] [facility] [employer] 7 [place] [address] Care Team Providers Care Hammer Repairer Name Role Phone Vernell Odonnell MD Primary Care Provide r Allergies No known active allergies Medications cyclobenzaprine (Flexeril) 10 MG tabletIndicatio ns:Chronic bilateral low back pain with bilateral sciatica Take 1 tablet (10 mg) by mouth at bedtime for 10 days. 10 tablet 06/18/2023 Active Blood Pressure Monitoring (Blood Pressure Cuff) miscIndications :Elevated blood pressure reading 1 each Once daily. 1 each 05/24/2024 Active atorvastatin (Lipitor) 80 MG tabletIndicatio ns:Dyslipidemia Take 1 tablet (80 mg) by mouth Once per day. 30 tablet 11 06/09/2024 06/10/19 26 Active acetaminophen (Tylenol) 500 MG tablet Take 2 tablets (1,000 mg) by mouth every 6 (six) hours if needed for moderate pain or fever for up to 25 doses. 50 tablet 11/01/2024 Active ibuprofen 400 MG tablet Take 1 tablet (400 mg) by mouth every 6 (six) hours if needed for moderate pain or fever for up to 30 doses. 30 tablet 11/01/2024 Active tiZANidine (Zanaflex) 2 MG tablet Take 1 tablet (2 mg) by mouth every 8 (eight) hours if needed for muscle spasms for up to 10 days. 30 tablet 11/01/2024 Active Active Problems Problem Noted Date Diagnosed Date Weak urine stream 11/24/2024 Chronic right shoulder pain 11/24/2024 Assessment & Plan (11/24/2024 10:10 AM EDT): Do not miss appointment with orthopedics Abdominal pain 11/23/2024 Contusion of rib on right side 11/23/2024 COVID-19 11/23/2024 Dysuria 11/23/2024 Encounter for removal of sutures 11/23/2024 Family history of colon canc er requiring screening colonoscopy 11/23/2024 Overview (11/23/2024): Screening colonoscopy reviewed colonoscopy 2016 Discussed procedure, rare risks need for escort Influenza A 11/23/2024 Laceration of left index finger 11/23/2024 Laceration of thumb, left, complicated Open fracture of middle phalanx of left index fi nger 11/23/2024 Open fracture of proximal phalanx of left index finger 11/23/2024 Stiffness of finger joint of left hand Encounter for screening colo noscopy for [id number] patient 11/23/2024 Elevated blood pressure reading 05/24/2024 Assessment & [...] Encounters Date Type Department Care Team Description 11/24/2024 9:00 AM EDT Office Visit [facility] [address] [place] [phone] Vernell Odonnell MD Chronic right shoulder pain (Primary Dx); Dietary counseling; Exercise counseling; Weak urine stream 11/24/2024 Travel 11/23/2024 Telephone [facility] [address] [place] [phone] Vernell Odonnell MD Chart Prep 11/15/2024 Patient Outreach [facility] [address] [place] [phone] Vernell Odonnell MD Pre-visit Planning ((Unable to reach for PVP screening, LVM) to be completed in office ) 11/01/2024 9:20 AM EDT Office Visit [facility] [address] [place] [phone] Fadi Hart MD Acute pain of right shoulder (Primary Dx); Injury of right shoulder, initial encounter 11/01/2024 Travel from Last 3 Months Immunizations Immunization Administration Dates Next Due Hep B, adult [...] Mass Index 29.46 11/24/2024 9:04 AM EDT Plan of Treatment Health Maintenance Due Date Last Done Comments CT Colonography 1965 FIT DNA/Cologuard 1965 FIT 1965 FOBT 1965 Sigmoidoscopy 1965 Disability Screening 1965 Hepatitis B Vaccines (2 of 3 - 19+ 3-dose series) 09/21/2008 08/24/2008 Pneumococcal Vaccine: 50+ Years (1 of 1 - PCV) 08/29/2015 Zoster Vaccines (1 of 2) 08/29/2015 Colonoscopy 04/15/2023 04/15/2016 Colorectal Cancer Screening 04/15/2023 SDOH Screening 05/13/2024 05/14/2023 Depression Screening 06/17/2024 06/18/2023, 06/18/19 24 COVID-19 Vaccine ( season) 2024 Influenza Vaccine (#1) 2024 , 11/23/2015, 11/28/2014, Additional history exists Diabetes: Hemoglobin A1C 06/08/2025 025, 06/20/2023, 12/15/2020 Alcohol/Substance Use Screening 11/24/2025 11/24/2024 Tobacco Screening 11/24/2025 11/24/2024 Lipid Panel 06/08/2029 06/08/2024, 06/08, 12/15/2020 DTaP/Tdap/Td Vaccines (4 - Td or [...] patient's age to complete this topic Meningococcal B Vaccine Aged Out No l onger eligible based on patient's age to complete [...] Procedure Name Priority Date/Time Associated Diagnosis Comments XR SHOULDER 2+ VIEWS RIGHT Routine 11/01/2024 9:02 AM EDT Acute pain of right shoulder Injury of right shoulder, initial encounter HEMOGLOBIN A1C Routine 06/08/2024 8:56 AM EDT Dyslipidemia LIPID PANEL, STANDARD Routine 06/08/2024 8:56 AM EDT Dyslipidemia HEPATITIS C AB W/REFL TO HCV RNA, QN, PCR Routine 06/20/2023 8:09 AM EDT Encounter for preventive health examination HIV 1/2 ANTIGEN/ANTIBODY, FOURTH GENERATION W/RFL Routine 06/20/2023 8:09 AM EDT Encounter for preventive health examination HM COLONOSCOPY Routine 04/15/2016 from Last 3 Months or Most Recently Relevant to Health Maintenance Results * XR Shoulder 2+ Views Right (11/01/2024 9:02 AM EDT) Anatomical Region Laterality Modality Upper Extremities, Shoulder Right Radi ographic Imaging 11/01/2024 9:02 AM EDT Narrative 11/01/2024 10:04 AM EDT [address] [address] XRay Report Signed Patient: Dre Briseno MR#: [id number] : 1965 Acct:[id number] Age/Sex: 59 / M ADM Date: 11/01/24 Loc: HO.HHCX Attending Dr: Fadi Hart MD Ordering Physician: FADI HART MD Date of Service: 11/01/24 Procedure(s): XR shoulder RT min 2V Accession Number(s): [id number] cc: FADI HART MD EXAMINATION: XR SHOULDER, RIGHT CLINICAL INFORMATION: right shoulder injury yesterday with superior shoulder pain COMPARISON: None available. TECHNIQUE: AP external rotation, Grashey, scapular Y, and axillary views of the right shoulder. FINDINGS: Normal bone mineralization. No fracture, dislocation, or suspicious bone lesion. Normal alignment. The glenohumeral joint is normal. The AC joint demonstrates mild superior surface spurring. There is a type II acromion. No undersurface spurring. The subacromial space is preserved. Remainder of the soft tissue and bony structures appear normal. XR/XR shoulder RT min 2V IMPRESSION: 1. No acute bony abnormalities of the right shoulder. 2. Mild osteoarthrosis of the AC joint. Electronically signed by: Deyvi Silva MD 11/01/2024 10:02 AM EDT Dictated By: Deyvi Silva MD Signed By: <Electronically signed by Deyvi Silva MD in OV> 11/01/24 1002 DD/ 0902 TD/TT: 11/01/24 0910 Energy Efficiency Finance Manager: Procedure Note Donotuseinterpreter, Image - 11/01/[address] [address] XRay Report Signed Patient: Dre BrisenoMR#: [id number] : 1965Acct:[id number] Age/Sex: 59 / MADM Date: 11/01/24 Loc: HO.HHCX Attending Dr: Fadi Hart MD Ordering Physician: FADI HART MD Date of Service: 11/01/24 Procedure(s): XR shoulder RT min 2V Accession Number(s): [id number] cc: FADI HART MD EXAMINATION: XR SHOULDER, RIGHT CLINICAL INFORMATION: right shoulder injury yesterday with superior shoulder pain COMPARISON: None available. TECHNIQUE: AP external rotation, Grashey, scapular Y, and axillary views of the right shoulder. FINDINGS: Normal bone mineralization. No fracture, dislocation, or suspicious bone lesion. Normal alignment. The glenohumeral joint is normal. The AC joint demonstrates mild superior surface spurring. There is a type II acromion. No undersurface spurring. The subacromial space is preserved. Remainder of the soft tissue and bony structures appear normal. XR/XR shoulder RT min 2V IMPRESSION: 1. No acute bony abnormalities of the right shoulder. 2. Mild osteoarthrosis of the AC joint. Electronically signed by: Deyvi Silva MD 11/01/2024 10:02 AM EDT Dictated By: Deyvi Silva MD Signed By: <Electronically signed by Deyvi Silva MD in OV> 11/01/24 1002 DD/ 0902 TD/TT: 11/01/24 0910 Energy Efficiency Finance Manager: Fadi Hart MD IMG XR PROCEDURES Final Result * Hemoglobin A1c (06/08/2024 8:56 AM EDT) Hemoglobin A1c 5.8 <6.0 % [facility] Comment:Hemoglobin A1C Refer ence Range Adults: 4.8 - 6.0 % Non diabetic: < 6.0 % Goal: < 7.0 %Additional Action Suggested: > 8.0 %Note: Hemoglobin A1c results are invalid for patients with abnormal amounts of HbF. Blood transfusions may impact the HbA1c concentration in the patient sample. Estimated Average Glucose 120 mg/dL [facility] Comment:eAG = Estimated ave rage glucose which is %A1C expressed asaverage glucose, using the formula of the D3M-MbzpjxjDolkglo Glucose study (ADAG), Diabetes Care, Vol.31,#8,2007 Blood Venous blood specimen / Unknown 06/08/2024 8:56 AM EDT 06/08/2024 11:17 AM EDT us Vernell Luque MD LAB BLOOD ORDERABLES Final Result Performing Organization Address City/[facility]/ZIP Co de Phone Number [facility] [address] [place] [address] [phone] * (ABNORMAL) Lipid Panel, Standard (06/08/2024 8:56 AM EDT) Triglycerides 250(H) <150 mg/dL [facility] Comment:Desirable Triglyceri de: less than 150 mg/dLBorderline High Triglyceride 150-199 mg/dLHigh Triglyceride: 200-499 mg/dLVery High Triglyceride: greater than or equal to 5OO mg/dL Cholesterol 242(H) <200 mg/dL [facility] Comment:Desirable Cholestero l: less than 200 mg/dLBorderline High Cholesterol: 200-239 mg/dLHigh Cholesterol: greater than 239 mg/dL LDL Cholesterol Calculated 158(H) <100 mg/dL [facility] Comment:Desirable LDL: less than 100 mg/dLNear Optimal/Above Optimal LDL: 110- 129 mg/dLBorderline High LDL: 130-159 mg/dLHigh LDL: 160-189 mg/dLVery High LDL: greater than or equal to 190 mg/dL HDL Cholesterol 34(L) >40 mg/dL [facility] Comment:Desirable HDL: great er than 40 mg/dL Note: This HDL assay may give artificially low results in patients with liver disease. Blood Venous blood specimen / Unknown 06/08/2024 8:56 AM EDT 06/08/2024 11:17 AM EDT us Vernell Luque MD LAB BLOOD ORDERABLES Final Result [facility] [address] [place] [phone] * Hepatitis C Antibody with Reflex to HCV, RNA, Quantitative, Real-Time PCR (06/20/2023 8:09 AM EDT) Hepatitis C Antibody Nonreactive Nonreactive [facility] Comment:Antibodies to HCV no t detected; does not exclude early acuteHCV infection. Blood Venous blood specimen / Unknown 06/20/2023 8:09 AM EDT 06/20/2023 11:29 AM EDT us Vernell Luque MD LAB BLOOD ORDERABLES Final Result Performing Organization Address [facility]/ZIP Co de Phone Number [facility] [address] [place] [phone] [phone] * HIV-1/2 Antigen and Antibodies, Fourth Generation, with Reflexes (06/20/2023 8:09 AM EDT) Pathologist [facility] HIV AB/AG Nonreactive Nonreactive [facility] Comment:HIV-1 p24 Ag and/or HIV-1/HIV-2 Ab not detected.A test result that is nonreactive does not exclude thepossibility of exposure to or infection with HIV-1 and/orHIV-2. Nonreactive results in this assay for individualswith prior exposure to HIV-1 and/or HIV-2 may be due toantigen and antibody levels that are below the limit ofdetection of this assay.The [employer] HIV Ag/Ab Combo assay result andsupplemental assay results should be interpreted inconjunction with the patient's clinical presentation,history and other laboratory results. If the results areinconsistent with clinical evidence, additional testing issuggested to confirm the result. Blood Venous blood specimen / Unknown 06/20/2023 8:09 AM EDT 06/20/2023 11:29 AM EDT us Vernell Luque MD LAB BLOOD ORDERABLES Final Result Performing Organization Address [facility]/ZIP Co de Phone Number [facility] [address] [place] [phone] * Hm Colonoscopy (04/15/2016) us Historical Provider HEALTH MAINTENANCE Final Result from Last 3 Months or Most Recently Relevant to Health Maintenance Insurance [facility] < 65 [place] [id number] Care Teams Hammer Repairer Relationship Specialty Start Date End Date Vernell Odonnell MD [address] [place] [phone] PCP - General Family Medicine 11/19/17
--- OUTSIDE RECORDS SUMMARY | 2024-11-24 11:21 | XMS_ITS | Encounter Summary ---
Author Organization [employer] Address [address] [place] [address] [place], [place] [address] Care Team Providers Care Health Service Coordinator Name Role Phone Vernell Odonnell MD Primary Care Provide r Reason for Visit * Reason Onset Date Comments Chart Prep 11/23/2024 Encounter Details Date Type Department Care Team ([facility] st Contact Info) Description 11/23/2024 Telephone [facility] [address] [place] [address] Vernell Odonnell MD [address] [place] [address] Chart Prep Social History Tobacco Use Types Packs/Day Years [...] your housing situation today? I have ghanshyam manda 11/24/[address] you li [...] AM EDT documented as of this encounter Miscellaneous Notes * Telephone Encounter - Christen Marshall [place] - 11/23/2024 2:54 PM EDT Chart Prep Labs: done Images: done Referrals: complete [facility]-12/24/24 Vaccines due: Covid, Flu, PCV20, Hep B, and Zoster Screenings: colonoscopy Overdue care gaps: SBIRT, SDOH, PHQ-9, LATRICIA-7, Oral health screening, and Disability screen documented in this encounter Plan of Treatment Not on file documented as of this encounter Visit Diagnoses Not on filedocumented in this encounter Additional Health Concerns Assessment Noted Time PHQ-9 Depression Total Score: 3 06/18/19 24 9:16 AM EDT documented as of this encounter Care Teams Health Service Coordinator Relationship Specialty Start Date End Date Vernell Odonnell MD [address] [place] [address] PCP - General Family Medicine 11/19/17 documented as of this encounter
--- OUTSIDE RECORDS SUMMARY | 2024-11-24 11:21 | XMS_ITS | Encounter Summary ---
Author Organization [employer] Address [address] [facility] [address]t [place] [address] Care Team Providers Care Plumbing Designer Name Role Phone Vernell Odonnell MD Primary Care Provide r Encounter Details Date Type Department Care Team (Latest Contact Info) Description 11/24/2024 Travel Social History Tobacco Use Types Packs/Day Years [...] AM EDT documented as of this encounter Functional Status * Over the [...] [place] documented as of this encounter Plan of Treatment Not on file documented as of this encounter Visit Diagnoses Not on filedocumented in this encounter Additional Health Concerns Assessment Noted Time PHQ-9 Depression Total Score: 3 06/18/19 24 9:16 AM EDT documented as of this encounter Care Teams Plumbing Designer Relationship Specialty Start Date End Date Vernell Odonnell MD [address] [place] [address] PCP - General Family Medicine 11/19/17 documented as of this encounter
--- OUTSIDE RECORDS SUMMARY | 2024-11-24 11:21 | XMS_ITS | Encounter Summary ---
Author Organization [employer] Address [address] [facility] [address] [place] [address] Care Team Providers Care Vice Chair Name Role Phone Vernell Odonnell MD Primary Care Provide r Encounter Details Date Type Department Care Team ([facility] st Contact Info) Description 11/14/2022 Orders Only [facility] [address] [place] [address] Provider, MD Anita Social History Tobacco Use [...] EST) Lipase 19 8 - 78 U/L [facility] 02/23/2023 10:2 7 AM EST 02/23/2023 10:30 AM EST Vernell Luque MD LAB BLOOD ORDERABLES Final Result Performing Organization Address [facility] Co de Phone Number [facility] [address] [place] [phone] * (ABNORMAL) SARS-CoV-2 RNA, Influenza A/B, and RSV RNA, Ql NAAT (02/23/2023 10:27 AM EST) Influenza A PCR POSITIVE(A) Negative [facility] Influenza B PCR NEGATIVE Negative [facility] Resp Syncy Virus RNA Qual PCR NEGATIVE Negative [facility] SARS COV2 PCR NEGATIVE Negative [facility] Comment:All test results mus [...] use by authorized laboratories.Testing performed on the [employer] GeneXpert utilizingreal-time RT-PCR.All SARS CoV2 and positive influenza A/B results arereported to [facility]. 02/23/2023 10:2 7 AM EST 02/23/2023 10:30 AM EST us Vernell Luque MD LAB MICROBIOLOGY - GE NERAL ORDERABLES Final Result Performing Organization Address [facility]/ZIP Co de Phone Number [facility] [address] [place] [phone] * (ABNORMAL) Comprehensive Metabolic Panel (02/23/2023 10:27 AM EST) Sodium 139 135 - 145 mmol/L [facility] Potassium 4.5 3.3 - 5.1 mmol/L [facility] Chloride 101 96 - 108 mmol/L [facility] Carbon Dioxide 30(H) 22 - 29 mmol/L [facility] Anion Gap 13 12 - 20 [facility] Urea Nitrogen (BUN) 11 9 - 16 mg/dL [facility] Creatinine, Serum 1.34 0.5 - 1.4 mg/dL [facility] Creatinine Clr Calc Pharmacy 56.2 [facility] Comment:eGFR (calculated fro m the MDRD study equation) and eCrCl(calculated from the Cockcroft-Gault equation) are based ondifferent parameters and may not yield comparable results.If eCrCl result is absurd, please check patient'sheight/weight. Estimated Glomerular Filt Rate 55 [facility] Comment:NOTE: For -Am erican individuals, multiply the result by 1.210.Chronic Kidney Disease: Estimated GFR < 60 mL/min/1.94w0Iyppit Kidney Disease: Estimated GFR < 15 mL/min/1.73m2 Glucose 93 60 - 115 mg/dL [facility] Calcium 9.5 8.4 - 10.2 mg/dL [facility] Bilirubin, Total 0.4 0.0 - 1.0 mg/dL [facility] Aspartate Amino Transferase 28 5 - 37 U/L [facility] Alanine Aminotransferase 28 0 - 40 U/L [facility] Total Protein 8.0 6.5 - 8.0 g/dL [facility] Albumin Level 4.4 3.5 - 5.0 g/dL [facility] Alkaline Phosphatase 90 39 - 117 U/L [facility] 02/23/2023 10:2 7 AM EST 02/23/2023 10:30 AM EST Vernell Luque MD LAB BLOOD ORDERABLES Final Result [facility] [address] [place], [place] [phone] * (ABNORMAL) CBC auto differential (02/23/2023 10:27 AM EST) White Blood Count 5.9 4.8 - 10.8 X10*3/uL [facility] Red Blood Count 5.71 4.60 - 5.80 X10*6/uL [facility] Hemoglobin 15.9 14.0 - 18.0 g/dl [facility] Hematocrit 48.8 42.0 - 52.0 % [facility] Mean Corpuscular Volume 85.5 80.0 - 98.0 fL [facility] Mean Corpuscular Hemoglobin 27.8 27.0 - 33.0 pg [facility] Mean Corpuscular HGB Conc 32.6 31.0 - 36.0 g/dl [facility] Red Cell Distribution Width 13.6 11.0 - 16.0 % [facility] Platelet Count 216 160 - 400 X10*3/uL [facility] Mean Platelet Volume 10.0 9.4 - 12.4 fL [facility] Neutrophils Percent Auto 52.6 45 - 73 % [facility] Imm Gran Pct Auto 0.3 0.0 - 0.4 % [facility] Lymphocytes Percent Auto 29.6 20 - 40 % [facility] Monocytes Percent Auto 16.2(H) 2 - 11 % [facility] Eosinophils Percent Auto 0.8 0 - 4 % [facility] Basophils Percent Auto 0.5 0 - 2 % [facility] NRBC Pct Auto 0.0 0.0 - 0.2 /100WBC [facility] Neutrophils Absolute Auto 3.1 2.0 - 8.3 x10*3/uL [facility] Imm Gran Abs Auto 0.02 0.00 - 0.03 X10*3/uL [facility] Lymphocytes Absolute Auto 1.8 1.2 - 4.9 X10*3/uL [facility] Monocytes Absolute Auto 1.0 0.1 - 1.2 X10*3/uL [facility] Eosinophils Absolute Auto 0.1 0.0 - 0.4 X10*3/uL [facility] Basophils Absolute Auto 0.0 0.0 - 0.2 X10*3/uL [facility] NRBC Abs Auto 0.000 0.0 - 0.012 X10*3/uL [facility] 02/23/2023 10:2 7 AM EST 02/23/2023 10:30 AM EST us Vernell Luque MD LAB BLOOD ORDERABLES Final Result Performing Organization Address [facility] Co de Phone Number [facility] [address] [place] [phone] * Urinalysis w/reflex microscopic (02/23/2023 10:27 AM EST) Color Urine Yellow [facility] Appearance Urine Clear [facility] PH 6.0 5.0 - 9.0 [facility] Glucose Urine UA Negative Negative mg/dL [facility] Urine Blood Negative Negative [facility] Specific [place] - Urine 1.025 1.005 - 1.025 [facility] Urine Protein Negative Neg-Trace mg/dL [facility] Urine Ketones Trace Negative mg/dL [facility] Nitrite Urine Negative Negative [facility] Leukocyte Esterase Urine Negative Negative [facility] 02/23/2023 10:2 7 AM EST 02/23/2023 10:31 AM EST Narrative [facility] - 02/23/2023 10:34 AM EST [id number], Clean Catch us Vernell Luque MD LAB URINE ORDERABLES Final Result Performing Organization Address [facility] Co de Phone Number [facility] [address] [place] [phone] * Hm Colonoscopy (04/15/2016) us Historical Provider HEALTH MAINTENANCE Final Result documented in this encounter Visit Diagnoses Not on filedocumented in this encounter Care Teams Vice Chair Relationship Specialty Start Date End Date Vernell Odonnell MD [address] [place] [phone] PCP - General Family Medicine 11/19/17 documented as of this encounter
[2024-11-24 12:04] LABS: PSA,Total (Free>4and<10) 1.03 ng/mL (0.00-4.00)
== END 2024-11-24 09:35 | disposition home or self-care (01) ==
LOC: HO.HHCL 09:34
PROVIDERS: PCP Internal Medicine; Visit Provider Internal Medicine
DX: Z12.5 Encounter for screening for malignant neoplasm of prostate (principal); R39.12 Poor urinary stream
CPT/HCPCS: 36415; 84153

== ENCOUNTER 2025-02-01 13:47 | Outpatient (AMB) | payer OTHER, SELFPAY ==
--- NOTE | 2025-02-01 13:52 | MHC.OFFVIS ---
Intake Visit Reasons: Weak urine stream Intake Note: Patient is present for WEAK URINE STREAM Urology Medication:NONE Antibiotic Allergy:NONE Blood Thinner:NONE TODAY'S PVR:0ML'S Client Success Director Required: No Client Success Director Services: Client Success Director Present Client Success Director Name: [id number] Allergies No Known Allergies Allergy (Mild, Verified 02/01/25 14:37) N/A Medication List - Last Reconciled 02/01/25 by ROSIO Reis acetaminophen (Tylenol Extra Strength) 1,000 mg (2 x 500 mg) PO QID PRN cholecalciferol (vitamin D3) 1 cap PO DAILY HPI Comments Details: Dre is a pleasant 59-year-old Arabic-speaking male patient of Dr. Luque who was accompanied by his family at today's office visit. He has a past medical history of GERD and hypercholesteremia. He presents to the office today as a new patient for ongoing lower urinary tract symptoms he has been experiencing. In discussion with the patient today he reports noting over the last few months he has been experiencing episodes of feeling of incomplete bladder emptying, straining with urination, urinary dribbling, and dysuria. He reports these symptoms have been intermittent. In office urinalysis results reviewed with the patient today essentially within normal limits. PVR 0 mL. In review of patient's chart it does appear PSA has been ordered and obtained and these results were reviewed and communicated with the patient today. PSA 12/02 1.0 We did discussed at length potential causes of these lower urinary tract symptoms as well as further treatment options and risks and benefits of these treatment options. We discussed obtaining retroperitoneal ultrasound for further assessment evaluation. We reviewed bladder triggers and irritants. We also reviewed healthy bathroom behaviors. All questions were answered. He denies incontinence, nocturia, hematuria, foul smelling urine, changes to urinary stream, flank pain, fever, and or chills. He otherwise offers no other issues or concerns at this time. [facility] Medical History Elevated cholesterol Hx of gastroesophageal reflux (GERD) Surgical History History of esophagogastroduodenoscopy (EGD) Hx of colonoscopy History of back surgery Social History (Updated 08/05/23 @ 09:58 by Debbi Knutson PA-C) Household Members: Spouse Household Members Other:: 7 kids Are you a primary careers counsellor to a significant other at home: No Do you presently have visiting nurse or other home services: No Alcohol intake: never Patient Tobacco Use Status: Never used Tobacco Current occupational status: retired and disabled 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 Review of Systems Const All systems reviewed & are unremarkable except as noted in HPI and below Physical Exam Const General: cooperative, comfortable, no acute distress, well developed, alert and awake Orientation/consciousness: patient oriented x3 Limitations: language barrier HEENT Head: Yes normal to inspection, Yes normocephalic and Yes atraumatic Ears: hearing grossly normal bilaterally Eyes General: appearance normal, both eyes and all related structures Neck Neck: Yes normal visual inspection and Yes trachea midline Chest Chest palpation & inspection: normal inspection of the chest Resp Effort & Inspection: normal respiratory effort and able to speak in complete sentences Cardio Rate: regular rate GI Inspection: Yes normal to inspection General: Yes no CVA tenderness Back/Spine/Pelvis Back: no CVA tenderness Skin General skin exam: no rashes or lesions noted Neuro General: patient oriented x3 Extrem General: Yes normal to inspection Psych Appearance: grossly normal and well kempt Mental Status: mental status grossly normal Speech and movement: Normal speech and movement present and Clear speech present Affect: normal affect Attitude: cooperative Thought process: Normal thought process present Thought content: Normal thought content present Insight: Fair insight present (Psych) Judgement: Fair judgement present (Psych) Office Procedures Post Void Residual Post Residual Void Post Void Residual (PVR): 0 [id number] Void Residual by ultrasound Results AMB Urinalysis, Automated UA Leukoctes 0 Braeden/uL Last Edit by ISHMAEL Caruso on 02/01/25 14:08 UA Nitrite Negative Last Edit by ISHMAEL Caruso on 02/01/25 14:08 UA Urobilinogen 0.2 mg/dL Last Edit by IHSMAEL Caruso on 02/01/25 14:08 UA Protein 15 mg/dL Last Edit by ISHMAEL Caruso on 02/01/25 14:08 UA pH 6.0 Last Edit by ISHMAEL Caruso on 02/01/25 14:08 UA Blood 0 Surinder/uL Last Edit by ISHMAEL Caruso on 02/01/25 14:08 UA Specific [place] 1.020 Last Edit by ISHMAEL Caruso on 02/01/25 14:08 UA Ketone Negative Last Edit by ISHMAEL Caruso on 02/01/25 14:08 UA Bilirubin 0 mg/dL Last Edit by ISHMAEL Caruso on 02/01/25 14:08 UA Glucose 0 mg/dL Last Edit by ISHMAEL Caruso on 02/01/25 14:08 Results Reviewed Results Reviewed: Laboratory Last Values Urine pH (Auto) 6.0 02/01/25 14:07 Specific [place] (Auto) 1.020 02/01/25 14:07 Urine Protein (Auto) 15 mg/dL 02/01/25 14:07 Glucose (UA)(Auto) 0 mg/dL 02/01/25 14:07 Urine Ketones (Auto) Negative 02/01/25 14:07 Urine Blood (Auto) 0 Surinder/uL 02/01/25 14:07 Urine Nitrite (Auto) Negative 02/01/25 14:07 Urine Bilirubin (Auto) 0 mg/dL 02/01/25 14:07 Urine Urobilinogen (Auto) 0.2 mg/dL 02/01/25 14:07 Leukocyte Esterase (Auto) 0 Braeden/uL 02/01/25 14:07 Assessment & Plan Assessment & Plan (1) Lower urinary tract symptoms: Code(s): R39.9 - Unspecified symptoms and signs involving the genitourinary system Category: Medical (2) Feeling of incomplete bladder emptying: Code(s): R39.14 - Feeling of incomplete bladder emptying Category: Medical (3) Urinary dribbling: Code(s): N39.43 - Post-void dribbling Category: Medical (4) Straining during urination: Code(s): R39.16 - Straining to void Category: Medical Plan In office urinalysis results reviewed with the patient today; as noted above. PVR 0 mL. We did discussed potential causes of lower urinary tract symptoms patient is experiencing as well as further treatment options and risks and benefits of these treatment options We discussed bladder triggers and Most recent PSA results reviewed with the patient today; as noted above. Will obtain retroperitoneal ultrasound for further assessment evaluation. We did discussed potential near future in office cystoscopy and or urodynamics for further assessment evaluation. Follow-up in 3 months with imaging; or sooner with any issues, concerns, and or questions. Orders: Orders AMB Urinalysis Automated Today Z13.9 - Encounter for screening, unspecified US retroperitoneal comp Today N39.43 - Post-void dribbling, R39.14 - Feeling of incomplete bladder emptying, R39.16 - Straining to void, R39.9 - Unspecified symptoms and signs involving the genitourinary system Patient Instructions: The patient had an opportunity to ask questions regarding the treatment plan. All questions were answered. Physical exam, labs, and imaging were discussed and reviewed in detail. As well as risks, benefits, and discussion of treatment choices. No major barriers to understanding were identified. The patient expressed understanding and agreement with the above treatment plan. The patient was made aware they should contact our office by phone for worsening of their current condition, the appearance of new symptoms, or with any questions or concerns. Compliance is encouraged with any medications and follow up testing that is ordered. It is a privilege to be allowed the opportunity to participate in? your urological care.? Again, if you have any questions or concerns If you have any questions or concerns please do not hesitate to contact me. The office is [phone]. This note is constructed using voice recognition software. While every effort has been made to ensure accuracy transition manager errors may have been included. Yours sincerely, ROSIO Reis Coding Level of Care Code New Pt Level 3 (28648) Diagnoses Lower urinary tract symptoms R39.9 Feeling of incomplete bladder emptying R39.14 Urinary dribbling N39.43 Straining during urination R39.16 CPT Codes Post Residual Void - PVR CPT Code: 08934-Ytrw Void Residual by ultrasound ([id number])
--- OUTSIDE RECORDS SUMMARY | 2025-02-01 17:38 | XMS_ITS | Clinical Summary ---
Author Organization [employer] Address [address] [place] [address] [address] [place] [address] Care Team Providers Care Vice President Of Nursing Name Role Phone Vernell Odonnell MD Primary [...] hand Encounter for screening colo noscopy for [id number] patient 11/23/2024 Elevated blood pressure reading 05/24/2024 [...] Description 11/24/2024 9:00 AM EDT Office Visit [facility] [address] [place] [phone] Vernell Odonnell MD Chronic right shoulder pain (Primary Dx); Dietary counseling; Exercise counseling; Weak urine stream 11/24/2024 Travel 11/23/2024 Telephone [facility] [address] [place] [phone] Vernell Odonnell MD Chart Prep 11/15/2024 Patient Outreach [facility] [address] [place] [phone] Vernell Odonnell MD Pre-visit Planning ((Unable to reach for PVP screening, LVM) to be completed in office ) 11/01/2024 9:20 AM EDT Office Visit [facility] [address] [place] [phone] Fadi Hart MD Acute pain of right [...] Procedure Name Priority Date/Time Associated Diagnosis Comments PSA, TOTAL WITH REFLEX TO PSA, FREE Routine 11/24/2024 9:43 AM EDT Weak urine stream XR SHOULDER 2+ VIEWS RIGHT Routine 11/01/2024 [...] Recently Relevant to Health Maintenance Results * PSA, Total With Reflex to PSA, Free (11/24/2024 9:43 AM EDT) PSA,Total (Free>4and<10) 1.03 0.00 - 4.00 ng/mL [facility] Comment:A Free PSA was not p erformed: The percentage of Free PSA can be used to enhance the differentiation of prostate cancer from benign prostatic disease in subjects whose PSA levels are between 4.0 and 10.0 ng/mL. For subjects whose PSA levels are below 4.0 or above 10.0 ng/mL, the risk of prostate cancer is determined on the basis of the PSA alone. Therefore the % Free PSA is recommended only for those subjects whose PSA levels are between 4.0 and 10.0 ng/mL.PSA methodology: Norris Alinity i ChemiluminescentMicroparticle Immunoassay (CMIA) 11/24/2024 9:43 AM EDT 11/24/2024 11:14 AM EDT Vernell Luque MD LAB BLOOD ORDERABLES Final Result [facility] [address] [place] [phone] * XR Shoulder 2+ Views Right (11/01/2024 9:02 AM EDT) Anatomical Region Laterality Modality Upper Extremities, Shoulder Right Radi ographic Imaging 11/01/2024 9:02 AM EDT Narrative 11/01/2024 10:04 AM EDT [address] [address] XRay Report Signed Patient: Dre Briseno MR#: [id number] : 1965 Acct:[id number] Age/Sex: 59 / M ADM Date: 11/01/24 Loc: HO.HHCX Attending Dr: Fadi Hart MD Ordering Physician: FADI HART MD Date of Service: 11/01/24 Procedure(s): XR shoulder RT min 2V Accession Number(s): [id number] cc: FADI HART MD EXAMINATION: XR SHOULDER, [...] 11/01/24 1002 DD/ 0902 TD/TT: 11/01/24 0910 Flag Signaler: Procedure Note Donotuseinterpreter, Image - 11/01/[address] [address] XRay Report Signed Patient: Dre BrisenoMR#: [id number] : 1965Acct:[id number] Age/Sex: 59 / MADM Date: 11/01/24 Loc: HO.HHCX Attending Dr: Fadi Hart MD Ordering Physician: FADI HART MD Date of Service: 11/01/24 Procedure(s): XR shoulder RT min 2V Accession Number(s): [id number] cc: FADI HART MD EXAMINATION: XR SHOULDER, [...] Deyvi Silva MD 11/01/2024 10:02 AM EDT RP Dictated By: Deyvi Silva MD Signed By: <Electronically signed by Deyvi Silva MD in OV> 11/01/24 1002 DD/ 0902 TD/TT: 11/01/24 0910 Flag Signaler: us Fadi Hart MD IMG XR PROCEDURES Final Result * Hemoglobin A1c (06/08/2024 8:56 AM EDT) Hemoglobin A1c 5.8 <6.0 % [facility] Comment:Hemoglobin A1C Refer ence Range Adults: 4.8 - 6.0 % Non diabetic: < 6.0 % Goal: < 7.0 %Additional Action Suggested: > 8.0 %Note: Hemoglobin A1c results are invalid for patients with abnormal amounts of HbF. Blood transfusions may impact the HbA1c concentration in the patient sample. Estimated Average Glucose 120 mg/dL [facility] Comment:eAG = Estimated ave rage glucose which is %A1C expressed asaverage glucose, using the formula of the P7N-CisvslgTckidkv Glucose study (ADAG), Diabetes Care, Vol.31,#8,Oct. 2007 Blood Venous blood specimen / Unknown 06/08/2024 8:56 AM EDT 06/08/2024 11:17 AM EDT us Vernell Luque MD LAB BLOOD ORDERABLES Final Result [facility] [address] [place] [phone] * (ABNORMAL) Lipid Panel, Standard (06/08/2024 8:56 AM EDT) Triglycerides 250(H) <150 mg/dL [facility] Comment:Desirable Triglyceri de: less than 150 mg/dLBorderline High Triglyceride 150-199 mg/dLHigh Triglyceride: 200-499 mg/dLVery High Triglyceride: greater than or equal to 5OO mg/dL Cholesterol 242(H) <200 mg/dL [facility] Comment:Desirable Cholestero l: less than 200 mg/dLBorderline High Cholesterol: 200-239 mg/dLHigh Cholesterol: greater than 239 mg/dL LDL Cholesterol Calculated 158(H) <100 mg/dL [facility] Comment:Desirable LDL: less than 100 mg/dLNear Optimal/Above Optimal LDL: 110- 129 mg/dLBorderline High LDL: 130-159 mg/dLHigh LDL: 160-189 mg/dLVery High LDL: greater than or equal to 190 mg/dL HDL Cholesterol 34(L) >40 mg/dL [facility] Comment:Desirable HDL: great er than 40 mg/dL Note: This HDL assay may give artificially low results in patients with liver disease. Blood Venous blood specimen / Unknown 06/08/2024 8:56 AM EDT 06/08/2024 11:17 AM EDT us Vernell Luque MD LAB BLOOD ORDERABLES Final Result Performing Organization Address [facility] Co de Phone Number [facility] [address] [place] [phone] * Hepatitis C Antibody with Reflex to HCV, RNA, Quantitative, Real-Time PCR (06/20/2023 8:09 AM EDT) Hepatitis C Antibody Nonreactive Nonreactive [facility] Comment:Antibodies to HCV no t detected; does not exclude early acuteHCV infection. Blood Venous blood specimen / Unknown 06/20/2023 8:09 AM EDT 06/20/2023 11:29 AM EDT us Vernell Luque MD LAB BLOOD ORDERABLES Final Result Performing Organization Address [facility] Co de Phone Number [facility] [address] [place] [phone] * HIV-1/2 Antigen and Antibodies, Fourth Generation, with Reflexes (06/20/2023 8:09 AM EDT) HIV AB/AG Nonreactive Nonreactive [facility] Comment:HIV-1 p24 Ag and/or HIV-1/HIV-2 Ab not detected.A test result that is nonreactive does not exclude thepossibility of exposure to or infection with HIV-1 and/orHIV-2. Nonreactive results in this assay for individualswith prior exposure to HIV-1 and/or HIV-2 may be due toantigen and antibody levels that are below the limit ofdetection of this assay.The [place] HIV Ag/Ab Combo assay result andsupplemental assay results should be interpreted inconjunction with the patient's clinical presentation,history and other laboratory results. If the results areinconsistent with clinical evidence, additional testing issuggested to confirm the result. Blood Venous blood specimen / Unknown 06/20/2023 8:09 AM EDT 06/20/2023 11:29 AM EDT Vernell Luque MD LAB BLOOD ORDERABLES Final Result [facility] [address] [place] [phone] * Hm Colonoscopy (04/15/2016) Historical Provider HEALTH MAINTENANCE Final Result from Last 3 Months or Most Recently Relevant to Health Maintenance Insurance [id number] < 65 [place] [id number] Care Teams Vice President Of Nursing Relationship Specialty Start Date End Date Vernell Odonnell MD [address] [place] [phone] PCP - General Family Medicine 11/19/17
--- OUTSIDE RECORDS SUMMARY | 2025-02-01 17:38 | XMS_ITS | Encounter Summary ---
Author Organization [employer] Address [address] [facility] [address] [place] [address] Care Team Providers Care Cover Creaser Name Role Phone Vernell Odonnell MD Primary Care Provide r Encounter Details Date Type Department Care Team ([facility] st Contact Info) Description 11/14/2022 Orders Only [facility] [address] [place] [address] Provider, MD Anita Social History Tobacco Use [...] EST) Lipase 19 8 - 78 U/L [facility] 02/23/2023 10:2 7 AM EST 02/23/2023 10:30 AM EST Vernell Luque MD LAB BLOOD ORDERABLES Final Result Performing Organization Address [facility] Co de Phone Number [facility] [address] [place] [phone] * (ABNORMAL) SARS-CoV-2 RNA, Influenza A/B, and RSV RNA, Ql NAAT (02/23/2023 10:27 AM EST) Influenza A PCR POSITIVE(A) Negative [facility] Influenza B PCR NEGATIVE Negative [facility] Resp Syncy Virus RNA Qual PCR NEGATIVE Negative [facility] SARS COV2 PCR NEGATIVE Negative [facility] Comment:All test results mus t be [...] use by authorized laboratories.Testing performed on the [employer] GeneXpert utilizingreal-time RT-PCR.All SARS CoV2 and positive influenza A/B results arereported to [facility]. 02/23/2023 10:2 7 AM EST 02/23/2023 10:30 AM EST us Vernell Luque MD LAB MICROBIOLOGY - GE NERAL ORDERABLES Final Result Performing Organization Address [facility]/ZIP Co de Phone Number [facility] [address] [place] [phone] * (ABNORMAL) Comprehensive Metabolic Panel (02/23/2023 10:27 AM EST) Sodium 139 135 - 145 mmol/L [facility] Potassium 4.5 3.3 - 5.1 mmol/L [facility] Chloride 101 96 - 108 mmol/L [facility] Carbon Dioxide 30(H) 22 - 29 mmol/L [facility] Anion Gap 13 12 - 20 [facility] Urea Nitrogen (BUN) 11 9 - 16 mg/dL [facility] Creatinine, Serum 1.34 0.5 - 1.4 mg/dL [facility] Creatinine Clr Calc Pharmacy 56.2 [facility] Comment:eGFR (calculated fro m the MDRD study equation) and eCrCl(calculated from the Cockcroft-Gault equation) are based ondifferent parameters and may not yield comparable results.If eCrCl result is absurd, please check patient'sheight/weight. Estimated Glomerular Filt Rate 55 [facility] Comment:NOTE: For -Am erican individuals, multiply the result by 1.210.Chronic Kidney Disease: Estimated GFR < 60 mL/min/1.88d5Ogikxr Kidney Disease: Estimated GFR < 15 mL/min/1.73m2 Glucose 93 60 - 115 mg/dL [facility] Calcium 9.5 8.4 - 10.2 mg/dL [facility] Bilirubin, Total 0.4 0.0 - 1.0 mg/dL [facility] Aspartate Amino Transferase 28 5 - 37 U/L [facility] Alanine Aminotransferase 28 0 - 40 U/L [facility] Total Protein 8.0 6.5 - 8.0 g/dL [facility] Albumin Level 4.4 3.5 - 5.0 g/dL [facility] Alkaline Phosphatase 90 39 - 117 U/L [facility] 02/23/2023 10:2 7 AM EST 02/23/2023 10:30 AM EST Vernell Luque MD LAB BLOOD ORDERABLES Final Result [facility] [address] [place], [place] [phone] * (ABNORMAL) CBC auto differential (02/23/2023 10:27 AM EST) White Blood Count 5.9 4.8 - 10.8 X10*3/uL [facility] Red Blood Count 5.71 4.60 - 5.80 X10*6/uL [facility] Hemoglobin 15.9 14.0 - 18.0 g/dl [facility] Hematocrit 48.8 42.0 - 52.0 % [facility] Mean Corpuscular Volume 85.5 80.0 - 98.0 fL [facility] Mean Corpuscular Hemoglobin 27.8 27.0 - 33.0 pg [facility] Mean Corpuscular HGB Conc 32.6 31.0 - 36.0 g/dl [facility] Red Cell Distribution Width 13.6 11.0 - 16.0 % [facility] Platelet Count 216 160 - 400 X10*3/uL [facility] Mean Platelet Volume 10.0 9.4 - 12.4 fL [facility] Neutrophils Percent Auto 52.6 45 - 73 % [facility] Imm Gran Pct Auto 0.3 0.0 - 0.4 % [facility] Lymphocytes Percent Auto 29.6 20 - 40 % [facility] Monocytes Percent Auto 16.2(H) 2 - 11 % [facility] Eosinophils Percent Auto 0.8 0 - 4 % [facility] Basophils Percent Auto 0.5 0 - 2 % [facility] NRBC Pct Auto 0.0 0.0 - 0.2 /100WBC [facility] Neutrophils Absolute Auto 3.1 2.0 - 8.3 x10*3/uL [facility] Imm Gran Abs Auto 0.02 0.00 - 0.03 X10*3/uL [facility] Lymphocytes Absolute Auto 1.8 1.2 - 4.9 X10*3/uL [facility] Monocytes Absolute Auto 1.0 0.1 - 1.2 X10*3/uL [facility] Eosinophils Absolute Auto 0.1 0.0 - 0.4 X10*3/uL [facility] Basophils Absolute Auto 0.0 0.0 - 0.2 X10*3/uL [facility] NRBC Abs Auto 0.000 0.0 - 0.012 X10*3/uL [facility] 02/23/2023 10:2 7 AM EST 02/23/2023 10:30 AM EST us Vernell Luque MD LAB BLOOD ORDERABLES Final Result Performing Organization Address [facility] Co de Phone Number [facility] [address] [place] [phone] * Urinalysis w/reflex microscopic (02/23/2023 10:27 AM EST) Color Urine Yellow [facility] Appearance Urine Clear [facility] PH 6.0 5.0 - 9.0 [facility] Glucose Urine UA Negative Negative mg/dL [facility] Urine Blood Negative Negative [facility] Specific [place] - Urine 1.025 1.005 - 1.025 [facility] Urine Protein Negative Neg-Trace mg/dL [facility] Urine Ketones Trace Negative mg/dL [facility] Nitrite Urine Negative Negative [facility] Leukocyte Esterase Urine Negative Negative [facility] 02/23/2023 10:2 7 AM EST 02/23/2023 10:31 AM EST Narrative [facility] - 02/23/2023 10:34 AM EST [id number], Clean Catch us Vernell Luque MD LAB URINE ORDERABLES Final Result Performing Organization Address [facility] Co de Phone Number [facility] [address] [place] [phone] * Hm Colonoscopy (04/15/2016) us Historical Provider HEALTH MAINTENANCE Final Result documented in this encounter Visit Diagnoses Not on filedocumented in this encounter Care Teams Cover Creaser Relationship Specialty Start Date End Date Vernell Odonnell MD [address] [place] [phone] PCP - General Family Medicine 11/19/17 documented as of this encounter
== END 2025-02-01 14:39 | disposition home or self-care (01) ==
LOC: HO.HUSH 13:48
PROVIDERS: PCP Internal Medicine; Visit Provider Nurse Practitioner Family
DX: R39.9 Unspecified symptoms and signs involving the genitourinary system (principal); R39.14 Feeling of incomplete bladder emptying; N39.43 Post-void dribbling; R39.16 Straining to void; Z13.9 Encounter for screening, unspecified
CPT/HCPCS: 99203

== ENCOUNTER → 2025-02-01 13:47 | Outpatient (BNVA) | payer OTHER, SELFPAY | PROVIDERS: PCP Internal Medicine; Visit Provider Nurse Practitioner Family | DX: R39.9 Unspecified symptoms and signs involving the genitourinary system (principal); R39.14 Feeling of incomplete bladder emptying; N39.43 Post-void dribbling; R39.16 Straining to void; Z13.9 Encounter for screening, unspecified | CPT/HCPCS: 51798; 81003; 99202 ==